=== PATIENT | male | born 1965 | race Caucasian/White ===

== ENCOUNTER 2017-12-18 11:31 | Inpatient (IN) | payer BC ==
[2017-12-18 14:01] LABS: #Eosinphils 0.1 thou/uL (0.0-0.7); #Lymphocytes 1.8 thou/uL (1.20-3.40); #Monocytes 0.6 thou/uL (0.11-0.59); #Neutrophils 5.3 thou/uL (1.40-6.50); %Basophils 0.4 % (0.0-1.0); %Eosinophils 1.6 % (0.0-10.0); %Monocytes 7.3 % (0.0-10.0); %Neutrophils 67.7 % (42.0-75.0); Hemoglobin 12.2 g/dL (14.0-18.0); Mean Corpuscular Hemoglobin 31.9 pg (27.0-31.0); Mean Corpuscular Volume 88.6 fL (78.0-98.0); Mean Platelet Volume 6.5 fL (7.4-10.4); Platelet Count 272 thou/uL (130-400); RBC Distribution Width 12.4 % (11.5-14.5); Red Blood Cell (RBC) Count 3.82 mill/uL (4.70-6.10); White Blood Cell (WBC) Count 7.9 thou/uL (4.8-10.8)
[2017-12-18 14:18] LABS: PTT 29.5 SEC (22.9-36.1); Prothrombin Time 12.8 SEC (12.0-14.7)
[2017-12-18 14:32] LABS: ALT (SGPT) 18 U/L (8-55); AST (SGOT) 15 U/L (5-34); Albumin 3.9 g/dL (3.5-5.0); Alkaline Phosphatase 51 U/L (40-150); Anion Gap 14 mmol/L (10-20); BUN (Urea Nitrogen) 46 mg/dL (8.9-20.6); Bilirubin, Total 0.5 mg/dL (0.2-1.2); Calc. Creatinine Clearance 56 mL/min (70-130); Calcium 9.1 mg/dL (7.8-10.44); Carbon Dioxide 19 mmol/L (22-29); Chloride 108 mmol/L (98-107); Estimated GFR-MDRD 27; Globulin 3.2 g/dL (2.4-3.5); Glucose 137 mg/dL (70-105); Potassium 4.7 mmol/L (3.5-5.1); Protein, Total 7.1 g/dL (6.0-8.3); Sodium 136 mmol/L (136-145)
--- NOTE | 2017-12-18 14:34 | PDOC.PN ---
- Subjective Encounter Start Date: 12/18/17 Encounter Start Time: 14:33 -: old records requested/rev Patient seen and examined. No new complaints. No overnight events no chest pain - Objective MAR Reviewed: Yes Vital Signs & Weight: Vital Signs (12 hours) Temp Pulse Resp BP Pulse Ox 12/18/17 13:00 98.1 F 80 16 97 12/18/17 12:27 98.1 F 80 16 101/85 97 Weight Weight 249 lb 2 oz Result Diagrams: 12/18/17 13:51 12/18/17 13:51 Phys Exam - Physical Examination Constitutional: NAD HEENT: PERRLA, moist MMs, sclera anicteric Neck: no JVD, supple Respiratory: no wheezing, no rales, no rhonchi Cardiovascular: RRR, no significant murmur, no rub Gastrointestinal: soft, non-tender, no distention, positive bowel sounds Musculoskeletal: pulses present, edema present trace edema Neurological: non-focal, normal sensation, moves all 4 limbs Psychiatric: normal affect, A&O x 3 Skin: no rash, normal turgor Dx/Plan (1) Diabetes type 2, controlled Code(s): E11.9 - TYPE 2 DIABETES MELLITUS WITHOUT COMPLICATIONS Status: Chronic (2) Dyslipidemia Code(s): E78.5 - HYPERLIPIDEMIA, UNSPECIFIED Status: Chronic (3) HTN (hypertension) Code(s): I10 - ESSENTIAL (PRIMARY) HYPERTENSION Status: Chronic Comment: Stable (4) Obesity (BMI 30.0-34.9) Code(s): E66.9 - OBESITY, UNSPECIFIED Status: Chronic - Plan cont current plan of care * will start his home medication * insulin as per sliding scale * medication reviewed as below * symptomatic treatment * plan for cardiac cath tomorrow as per cardio * code-full code, is surrogate decision maker. Review of Systems - Review of Systems Constitutional: negative: fever, chills, sweats, weakness, malaise, other Eyes: negative: Pain, Vision Change, Conjunctivae Inflammation, Eyelid Inflammation, Redness, Other ENT: negative: Ear Pain, Ear Discharge, Nose Pain, Nose Discharge, Nose Congestion, Mouth Pain, Mouth Swelling, Throat Pain, Throat Swelling, Other Respiratory: negative: Cough, Dry, Shortness of Breath, Hemoptysis, SOB with Excertion, Pleuritic Pain, Sputum, Wheezing Cardiovascular: negative: chest pain, palpitations, orthopnea, paroxysmal nocturnal dyspnea, edema, light headedness, other Gastrointestinal: negative: Nausea, Vomiting, Abdominal Pain, Diarrhea, Constipation, Melena, Hematochezia, Other Genitourinary: negative: Dysuria, Frequency, Incontinence, Hematuria, Retention , Other Musculoskeletal: negative: Neck Pain, Shoulder Pain, Arm Pain, Back Pain, Hand Pain, Leg Pain, Foot Pain, Other Skin: negative: Rash, Lesions, Travis, Bruising, Other Neurological: negative: Weakness, Numbness, Incoordination, Change in Speech, Confusion, Seizures, Other - Medications/Allergies Allergies/Adverse Reactions: Allergies Allergy/AdvReac Type Severity Reaction Status Date / Time No Known Allergies Allergy Verified 12/18/17 12:29 Medications: Current Medications Atorvastatin Calcium (Lipitor) 40 mg PO HS RAFAEL Sodium Chloride (Normal Saline 0.9%) 1,000 mls @ 75 mls/hr IV .[id number] RAFAEL Metoprolol Tartrate (Lopressor) 50 mg PO BID [facility] History of Present Illnes - Past Medical History Cardiac: HTN Endocrine: Diabetes, Hyperthyroidism - Past Surgical History Past Surgical History: None - Past Family History Family History: None - Past Social History Smoke: Quit Alcohol: None Drugs: None Lives: With Family Domestic Violence: Negative
[2017-12-18] MEDS: Sodium Chloride 0.9% 1,000 ML IV SCH (15:27)
[2017-12-18] MEDS: Atorvastatin Calcium 40 MG TAB PO SCH (20:10)
[2017-12-18] MEDS ORDERED: Metoprolol Tartrate 50 MG TAB PO SCH (21:00)
[2017-12-19] MEDS: Sodium Chloride 0.9% 1,000 ML IV SCH ×2 (02:55→14:35)
[2017-12-19 04:39] LABS: Anion Gap 12 mmol/L (10-20); BUN (Urea Nitrogen) 42 mg/dL (8.9-20.6); Calc. Creatinine Clearance 60 mL/min (70-130); Calcium 8.9 mg/dL (7.8-10.44); Carbon Dioxide 22 mmol/L (22-29); Cardiac Risk 4.3 (Less than 4.5); Chloride 107 mmol/L (98-107); Cholesterol 124 mg/dl (< 200 Desired); Estimated GFR-MDRD 30; Glucose 121 mg/dL (70-105); HDL Cholesterol 29 mg/dL (>60 Neg Risk); LDL Cholesterol, Calculated 64 mg/dL; Potassium 5.1 mmol/L (3.5-5.1); Sodium 136 mmol/L (136-145); Triglycerides 155 mg/dL (Less than 150)
[2017-12-19] MEDS ORDERED: Lidocaine 1% (PF) 30 ML VIAL ONE (06:44)
[2017-12-19] MEDS ORDERED: Acetaminophen 325 MG TAB PO PRN (07:09)
[2017-12-19] MEDS ORDERED: Chloraseptic Spray 180 ml Bottle PO PRN (07:09)
[2017-12-19] MEDS ORDERED: Loperamide HCl 2 MG CAP PO PRN (07:09)
[2017-12-19] MEDS ORDERED: Ondansetron ODT 4 MG TAB PO PRN (07:09)
[2017-12-19] MEDS ORDERED: hydrALAZINE 20 MG/ML VIAL SLOW IVP PRN (07:09)
[2017-12-19] MEDS ORDERED: Diabetic Tussin 200 MG/10 ML UDCUP PO PRN (07:09)
[2017-12-19] MEDS ORDERED: Ondansetron HCl/PF 4 MG/2 ML Vial IVP PRN (07:09)
[2017-12-19] MEDS ORDERED: Artificial Tears 18 DROP/0.9 ML EA EYE PRN (07:09)
[2017-12-19] MEDS ORDERED: Eucerin (Mineral Oil/Petrolatum,White) 30 gm Jar TOP PRN (07:09)
[2017-12-19] MEDS ORDERED: Senokot 8.6 MG TAB PO PRN (07:09)
[2017-12-19] MEDS ORDERED: Dextrose 5% in Water 1,000 ML IV PRN (07:09)
[2017-12-19] MEDS ORDERED: Nitroglycerin 0.4 MG TAB (25 Tab Bottle) SL PRN ×2 (07:09→07:33)
[2017-12-19] MEDS ORDERED: Mag-Al 1200 mg/1200 mg/30 ML UDCUP PO PRN (07:09)
[2017-12-19] MEDS ORDERED: Sodium Chloride 0.65% Nasal 44 ML BOT EA NARE PRN (07:09)
[2017-12-19] MEDS ORDERED: Zolpidem Tartrate 5 MG TAB PO PRN (07:09)
[2017-12-19] MEDS ORDERED: HYDROcodone/Acetaminophen 5/325 mg Tablet PO PRN (07:09)
[2017-12-19] MEDS ORDERED: Loratadine 10 MG TAB PO PRN (07:09)
[2017-12-19] MEDS ORDERED: Milk Of Magnesia 30 ML UDCUP PO PRN (07:09)
[2017-12-19] MEDS ORDERED: Dextrose 50% Abboject 50 ML SYRINGE SLOW IVP PRN (07:09)
[2017-12-19] MEDS ORDERED: HumaLOG 300 UNITS/3 ML VIAL SC PRN (07:09)
[2017-12-19] MEDS ORDERED: Heparin 10,000 UNITS/1 ML VIAL ONE (07:10)
[2017-12-19] MEDS ORDERED: Fentanyl 100 MCG/2 ML VIAL ONE (07:12)
[2017-12-19] MEDS ORDERED: Midazolam HCl 2 mg/2 ml Vial ONE (07:12)
[2017-12-19] MEDS ORDERED: Protamine Sulfate 50 MG/5 ML VIAL ONE (07:28)
[2017-12-19] MEDS ORDERED: Acetaminophen/Codeine 30-300mg Tablet PO PRN ×2 (07:33)
[2017-12-19] MEDS ORDERED: Sodium Chloride 0.9% 1,000 ML IV SCH (07:45)
[2017-12-19] MEDS ORDERED: Sodium Chloride 0.9% 200 ML IV SCH (07:45)
[2017-12-19] MEDS ORDERED: Heparin 5,000 UNITS/ML VIAL SC SCH (09:00)
[2017-12-19] MEDS: Famotidine 20 MG TAB PO SCH (09:24)
[2017-12-19] MEDS: Bupropion 150 MG SR TAB PO SCH ×2 (09:24→19:53)
--- NOTE | 2017-12-19 11:51 | PDOC.PN ---
- Subjective Encounter Start Date: 12/19/17 Encounter Start Time: 08:20 -: old records requested/rev Patient seen and examined. No new complaints. No overnight events - Objective Resuscitation Status: Resuscitation Status FULL:Full Resuscitation MAR Reviewed: Yes Vital Signs & Weight: Vital Signs (12 hours) Temp Pulse Resp BP BP Pulse Ox 12/19/17 07:58 98.3 F 61 18 111/62 98 12/19/17 06:55 97.8 F 63 18 12/19/17 05:33 97.8 F 63 18 105/68 98 12/19/17 01:02 98.1 F 66 18 107/67 97 Weight Weight 249 lb 2 oz I&O: 12/18/17 12/19/17 12/20/17 06:59 06:59 06:59 Intake Total 1750 Balance 1750 Result Diagrams: 12/18/17 13:51 12/19/17 03:46 Phys Exam - Physical Examination Constitutional: NAD HEENT: PERRLA, moist MMs, sclera anicteric Neck: no JVD, supple Respiratory: no wheezing, no rales, no rhonchi Cardiovascular: RRR, no significant murmur, no rub Gastrointestinal: soft, non-tender, no distention, positive bowel sounds Musculoskeletal: no edema, pulses present Neurological: non-focal, normal sensation Psychiatric: normal affect, A&O x 3 Skin: no rash, normal turgor Dx/Plan (1) Diabetes type 2, controlled Code(s): E11.9 - TYPE 2 DIABETES MELLITUS WITHOUT COMPLICATIONS Status: Chronic (2) Dyslipidemia Code(s): E78.5 - HYPERLIPIDEMIA, UNSPECIFIED Status: Chronic (3) HTN (hypertension) Code(s): I10 - ESSENTIAL (PRIMARY) HYPERTENSION Status: Chronic Comment: Stable (4) Obesity (BMI 30.0-34.9) Code(s): E66.9 - OBESITY, UNSPECIFIED Status: Chronic (5) CAD (coronary artery disease) Code(s): I25.10 - ATHSCL HEART DISEASE OF [place] CORONARY ARTERY W/O ANG PCTRS Status: Acute - Plan cont current plan of care, plan discussed w/ family * he has one vessel rca disease, but has collateral from left * he needs medical therapy * continue ivf today * consult nephrology * selected home meds * his bp runs low, so hold bp meds * medication reviewed as below * symptomatic treatment * discussed with family. Review of Systems - Review of Systems Eyes: negative: Pain, Vision Change, Conjunctivae Inflammation, Eyelid Inflammation, Redness, Other ENT: negative: Ear Pain, Ear Discharge, Nose Pain, Nose Discharge, Nose Congestion, Mouth Pain, Mouth Swelling, Throat Pain, Throat Swelling, Other Respiratory: negative: Cough, Dry, Shortness of Breath, Hemoptysis, SOB with Excertion, Pleuritic Pain, Sputum, Wheezing Cardiovascular: negative: chest pain, palpitations, orthopnea, paroxysmal nocturnal dyspnea, edema, light headedness, other Gastrointestinal: negative: Nausea, Vomiting, Abdominal Pain, Diarrhea, Constipation, Melena, Hematochezia, Other Genitourinary: negative: Dysuria, Frequency, Incontinence, Hematuria, Retention , Other Musculoskeletal: negative: Neck Pain, Shoulder Pain, Arm Pain, Back Pain, Hand Pain, Leg Pain, Foot Pain, Other Skin: negative: Rash, Lesions, Travis, Bruising, Other - Medications/Allergies Allergies/Adverse Reactions: Allergies Allergy/AdvReac Type Severity Reaction Status Date / Time No Known Allergies Allergy Verified 12/18/17 12:29 Medications: Current Medications Acetaminophen (Tylenol) 650 mg PO Q4H PRN PRN Reason: Headache/Fever or Mild Pain Acetaminophen/Codeine Phosphate (Tylenol #3) 1 tab PO Q4H PRN PRN Reason: Mild Pain (1-3) Acetaminophen/Codeine Phosphate (Tylenol #3) 2 tab PO Q4H PRN PRN Reason: Moderate Pain (4-6) Hydrocodone Bitart/Acetaminophen ([place] 5/325) 1 tab PO Q4H PRN PRN Reason: Moderate Pain (4-6) Last Admin: 12/19/17 09:18 Dose: 1 tab Al Hydroxide/Mg Hydroxide (Maalox) 15 ml PO Q4H PRN PRN Reason: Heartburn or Indigestion Artificial Tears (Tears Naturale) 0 drop EA EYE PRN PRN PRN Reason: Dry Eyes Aspirin (Ecotrin) 81 mg PO DAILY [facility] Atorvastatin Calcium (Lipitor) 40 mg PO HS [facility] Last Admin: 12/18/17 20:10 Dose: 40 mg Bupropion HCl (Wellbutrin Sr) 150 mg PO BID [facility] Last Admin: 12/19/17 09:24 Dose: 150 mg Dextrose/Water (Dextrose 50%) 25 gm SLOW IVP PRN PRN PRN Reason: Hypoglycemia Famotidine (Pepcid) 20 mg PO DAILY [facility] Last Admin: 12/19/17 09:24 Dose: 20 mg Glucagon (Glucagon) 1 mg IM PRN PRN PRN Reason: Hypoglycemia Guaifenesin (Robitussin Sf) 200 mg PO Q4H PRN PRN Reason: Cough Hydralazine HCl (Apresoline) 10 mg SLOW IVP Q4H PRN PRN Reason: Systolic BP > 180 Dextrose/Water (D5w) 1,000 mls @ 0 mls/hr IV .Q0M PRN; As Directed PRN Reason: Hypoglycemia Sodium Chloride (Normal Saline 0.9%) 1,000 mls @ 75 mls/hr IV .[id number] RAFAEL Sodium Chloride (Normal Saline 0.9%) 1,000 mls @ 125 mls/hr IV .Q8H [facility] Stop: 12/19/17 14:00 Last Admin: 12/19/17 08:20 Dose: 1,000 mls Sodium Chloride (Normal Saline 0.9%) 200 mls @ 0 mls/hr IV ONE RAFAEL PRN Reason: As Directed Stop: 12/19/17 21:00 Insulin Human Lispro (Humalog) 0 units SC .MODERATE SLIDING SC PRN PRN Reason: Moderate Correctional Scale Insulin Human Lispro (Humalog) 0 units SC .BEDTIME SLIDING SC PRN PRN Reason: Bedtime Correctional Scale Loperamide HCl (Imodium) 2 mg PO PRN PRN PRN Reason: Diarrhea/Loose Stools Loratadine (Claritin) 10 mg PO DAILYPRN PRN PRN Reason: Sinus Symptoms Magnesium Hydroxide (Milk Of Magnesium) 30 ml PO DAILYPRN PRN PRN Reason: Constipation Mineral Oil/White Petrolatum (Eucerin Cream) 0 gm TOP BIDPRN PRN PRN Reason: Dry Skin Nitroglycerin (Nitrostat) 0.4 mg SL Q5MIN PRN PRN Reason: Chest Pain Ondansetron HCl (Zofran Odt) 4 mg PO Q6H PRN PRN Reason: Nausea/Vomiting Ondansetron HCl (Zofran) 4 mg IVP Q6H PRN PRN Reason: Nausea/Vomiting Phenol (Chloraseptic [place] 180 Ml Bot) 0 ml PO PRN PRN PRN Reason: Sore Throat Senna (Senokot) 2 tab PO HSPRN PRN PRN Reason: Constipation Sodium Chloride ([place] Nasal [place] 0.65%) 0 ml EA NARE QIDPRN PRN PRN Reason: Nasal Congestion Zolpidem Tartrate (Ambien) 5 mg PO HSPRN PRN PRN Reason: Insomnia
[2017-12-19] MEDS ORDERED: Iopamidol 370 76% 100 ML VIAL ONE (12:47)
--- NOTE | 2017-12-19 14:04 | EKG ---
Test Reason : PREOP Blood Pressure : / mmHG Vent. Rate : 064 BPM Atrial Rate : 064 BPM P-R Int : 196 ms QRS Dur : 094 ms QT Int : 408 ms P-R-T Axes : 040 054 045 degrees QTc Int : 420 ms Normal sinus rhythm Normal ECG Confirmed by CARIDAD ALCALA ([id number]) on 12/19/2017 2:04:36 PM Referred By: SCOTT Confirmed By:CARIDAD ALCALA
[2017-12-19 16:10] LABS: Bilirubin Negative (Negative); Blood, Urine Negative (Negative); Clarity CLEAR (Clear); Glucose, Urine (Dipstick) 250 mg/dL (Negative); Leukocyte Negative (Negative); Nitrite Negative (Negative); Protein, Urine (Dipstick) Trace mg/dL (Neg-Trace); Urobilinogen 0.2 mg/dL (0.2-1.0); pH, Urine 5.5 (5.0-9.0)
[2017-12-19 16:13] LABS: Bacteria/HPF None Seen HPF (None Seen); Hyaline Casts/LPF 0-3 HYALINE CAST LPF (0-3 Hyaline); Pathc Cast-AUWi Flag 0.14 (0-2.49); RBC/HPF 0-3 HPF (0-3); Squamous Epithelial None Seen HPF (0-3); WBC/HPF None Seen HPF (0-3)
[2017-12-19] MEDS: Atorvastatin Calcium 40 MG TAB PO SCH (19:53)
[2017-12-20] MEDS: Sodium Chloride 0.9% 1,000 ML IV SCH ×2 (04:10→17:47)
[2017-12-20 05:13] VITALS: BMI 33.3
[2017-12-20 05:38] LABS: Anion Gap 11 mmol/L (10-20); BUN (Urea Nitrogen) 28 mg/dL (8.9-20.6); Calc. Creatinine Clearance 76 mL/min (70-130); Calcium 9.2 mg/dL (7.8-10.44); Carbon Dioxide 19 mmol/L (22-29); Chloride 109 mmol/L (98-107); Estimated GFR-MDRD 39; Glucose 140 mg/dL (70-105); Potassium 5.3 mmol/L (3.5-5.1); Sodium 134 mmol/L (136-145)
[2017-12-20] MEDS: Bupropion 150 MG SR TAB PO SCH (08:09)
[2017-12-20] MEDS: HumaLOG 300 UNITS/3 ML VIAL SC PRN ×2 (08:09→11:08)
[2017-12-20] MEDS: Famotidine 20 MG TAB PO SCH (08:09)
[2017-12-20] MEDS ORDERED: Aspirin 81 mg Enteric Coated Tablet PO SCH (09:00)
--- NOTE | 2017-12-20 10:01 | PDOC.PN ---
- Subjective Encounter Start Date: 12/20/17 Encounter Start Time: 07:50 Patient seen and examined. No new complaints. No overnight events - Objective Resuscitation Status: Resuscitation Status FULL:Full Resuscitation MAR Reviewed: Yes Vital Signs & Weight: Vital Signs (12 hours) Temp Pulse Resp BP BP Pulse Ox 12/20/17 08:00 98.2 F 66 16 97 12/20/17 07:31 98.2 F 66 16 126/60 97 12/20/17 03:14 97.6 F 59 L 14 109/59 L 98 Weight Weight 245 lb 8 oz I&O: 12/19/17 12/20/17 12/21/17 06:59 06:59 06:59 Intake Total 1750 3380 Output Total 4775 Balance 1750 -1395 Result Diagrams: 12/18/17 13:51 12/20/17 05:05 Additional Labs: Accuchecks 12/20/17 12/19/17 12/19/17 05:57 20:59 11:28 POC Glucose 165 H 108 121 H EKG Reviewed by me: Yes (nsr) Phys Exam - Physical Examination Constitutional: NAD HEENT: PERRLA, moist MMs, sclera anicteric Neck: no JVD, supple Respiratory: no wheezing, no rales, no rhonchi Cardiovascular: RRR, no significant murmur, no rub Gastrointestinal: soft, non-tender, no distention, positive bowel sounds Musculoskeletal: pulses present trace edema+ Neurological: non-focal, normal sensation, moves all 4 limbs Psychiatric: normal affect, A&O x 3 Skin: no rash, normal turgor Dx/Plan (1) Diabetes type 2, controlled Code(s): E11.9 - TYPE 2 DIABETES MELLITUS WITHOUT COMPLICATIONS Status: Chronic (2) Dyslipidemia Code(s): E78.5 - HYPERLIPIDEMIA, UNSPECIFIED Status: Chronic (3) HTN (hypertension) Code(s): I10 - ESSENTIAL (PRIMARY) HYPERTENSION Status: Chronic Comment: Stable (4) Obesity (BMI 30.0-34.9) Code(s): E66.9 - OBESITY, UNSPECIFIED Status: Chronic (5) CAD (coronary artery disease) Code(s): I25.10 - ATHSCL HEART DISEASE OF [place] CORONARY ARTERY W/O ANG PCTRS Status: Acute - Plan cont current plan of care, plan discussed w/ family * medication reviewed as below * symptomatic treatment * stable for discharge * see discharge summery * discharge medication reconciliation done. * discussed with Review of Systems - Review of Systems Eyes: negative: Pain, Vision Change, Conjunctivae Inflammation, Eyelid Inflammation, Redness, Other ENT: negative: Ear Pain, Ear Discharge, Nose Pain, Nose Discharge, Nose Congestion, Mouth Pain, Mouth Swelling, Throat Pain, Throat Swelling, Other Respiratory: negative: Cough, Dry, Shortness of Breath, Hemoptysis, SOB with Excertion, Pleuritic Pain, Sputum, Wheezing Cardiovascular: negative: chest pain, palpitations, orthopnea, paroxysmal nocturnal dyspnea, edema, light headedness, other Gastrointestinal: negative: Nausea, Vomiting, Abdominal Pain, Diarrhea, Constipation, Melena, Hematochezia, Other Genitourinary: negative: Dysuria, Frequency, Incontinence, Hematuria, Retention , Other Musculoskeletal: negative: Neck Pain, Shoulder Pain, Arm Pain, Back Pain, Hand Pain, Leg Pain, Foot Pain, Other Skin: negative: Rash, Lesions, Travis, Bruising, Other - Medications/Allergies Allergies/Adverse Reactions: Allergies Allergy/AdvReac Type Severity Reaction Status Date / Time No Known Allergies Allergy Verified 12/18/17 12:29 Medications: Current Medications Acetaminophen (Tylenol) 650 mg PO Q4H PRN PRN Reason: Headache/Fever or Mild Pain Acetaminophen/Codeine Phosphate (Tylenol #3) 1 tab PO Q4H PRN PRN Reason: Mild Pain (1-3) Acetaminophen/Codeine Phosphate (Tylenol #3) 2 tab PO Q4H PRN PRN Reason: Moderate Pain (4-6) Hydrocodone Bitart/Acetaminophen ([place] 5/325) 1 tab PO Q4H PRN PRN Reason: Moderate Pain (4-6) Last Admin: 12/19/17 09:18 Dose: 1 tab Al Hydroxide/Mg Hydroxide (Maalox) 15 ml PO Q4H PRN PRN Reason: Heartburn or Indigestion Artificial Tears (Tears Naturale) 0 drop EA EYE PRN PRN PRN Reason: Dry Eyes Aspirin (Ecotrin) 81 mg PO DAILY [facility] Last Admin: 12/20/17 08:09 Dose: 81 mg Atorvastatin Calcium (Lipitor) 40 mg PO HS [facility] Last Admin: 12/19/17 19:53 Dose: 40 mg Bupropion HCl (Wellbutrin Sr) 150 mg PO BID [facility] Last Admin: 12/20/17 08:09 Dose: 150 mg Dextrose/Water (Dextrose 50%) 25 gm SLOW IVP PRN PRN PRN Reason: Hypoglycemia Famotidine (Pepcid) 20 mg PO DAILY [facility] Last Admin: 12/20/17 08:09 Dose: 20 mg Glucagon (Glucagon) 1 mg IM PRN PRN PRN Reason: Hypoglycemia Guaifenesin (Robitussin Sf) 200 mg PO Q4H PRN PRN Reason: Cough Hydralazine HCl (Apresoline) 10 mg SLOW IVP Q4H PRN PRN Reason: Systolic BP > 180 Dextrose/Water (D5w) 1,000 mls @ 0 mls/hr IV .Q0M PRN; As Directed PRN Reason: Hypoglycemia Sodium Chloride (Normal Saline 0.9%) 1,000 mls @ 75 mls/hr IV .[id number] [facility] Last Admin: 12/20/17 04:10 Dose: 1,000 mls Insulin Human Lispro (Humalog) 0 units SC .MODERATE SLIDING SC PRN PRN Reason: Moderate Correctional Scale Last Admin: 12/20/17 08:09 Dose: 2 unit Insulin Human Lispro (Humalog) 0 units SC .BEDTIME SLIDING SC PRN PRN Reason: Bedtime Correctional Scale Loperamide HCl (Imodium) 2 mg PO PRN PRN PRN Reason: Diarrhea/Loose Stools Loratadine (Claritin) 10 mg PO DAILYPRN PRN PRN Reason: Sinus Symptoms Magnesium Hydroxide (Milk Of Magnesium) 30 ml PO DAILYPRN PRN PRN Reason: Constipation Mineral Oil/White Petrolatum (Eucerin Cream) 0 gm TOP BIDPRN PRN PRN Reason: Dry Skin Nitroglycerin (Nitrostat) 0.4 mg SL Q5MIN PRN PRN Reason: Chest Pain Ondansetron HCl (Zofran Odt) 4 mg PO Q6H PRN PRN Reason: Nausea/Vomiting Ondansetron HCl (Zofran) 4 mg IVP Q6H PRN PRN Reason: Nausea/Vomiting Phenol (Chloraseptic [place] 180 Ml Bot) 0 ml PO PRN PRN PRN Reason: Sore Throat Senna (Senokot) 2 tab PO HSPRN PRN PRN Reason: Constipation Sodium Chloride ([place] Nasal [place] 0.65%) 0 ml EA NARE QIDPRN PRN PRN Reason: Nasal Congestion Zolpidem Tartrate (Ambien) 5 mg PO HSPRN PRN PRN Reason: Insomnia
--- NOTE | 2017-12-20 12:04 | DIS ---
DATE OF ADMISSION: 12/18/2017 DATE OF DISCHARGE: 12/20/2017 PRIMARY CARE PHYSICIAN: Dr. Kingsley Cooper. DISCHARGE DISPOSITION: Home. PRIMARY DISCHARGE DIAGNOSIS: Single vessel right coronary artery disease. SECONDARY DISCHARGE DIAGNOSES: Obesity with BMI 33, hypertension, dyslipidemia, diabetes type 2, chr onic kidney disease stage 3. PRIMARY PROCEDURE AND OPERATION: Cardiac catheterization was performed by Dr. Kirkpatrick and patient w as found with one-vessel coronary artery disease. RADIOLOGICAL INVESTIGATION: None. SIGNIFICANT LABORATORY DATA: WBC 7.9, hemoglobin 12.2, platelet 272. INR 1.0. Sodium 134, potassiu m 5.3, BUN 28, creatinine 1.84, calcium 9.2, LDL 64. Urinalysis, glucose present. DISCHARGE MEDICATIONS: Aspirin 81 mg p.o. daily, Lipitor 40 mg p.o. at bedtime, Wellbutrin-SR 150 mg p.o. b.i.d. Discontinue following medications, lisinopril with hydrochlorothiazide, metformin. Con tinue insulin NPH 70/30, 30 units subcu in the morning. CONTRAINDICATIONS: The patient is not on antihypertensive medication because of low blood pressure. CODE STATUS: FULL CODE. INPATIENT CONSULTANTS: Dr. Kirkpatrick admitted this patient. Sound team was consulted for medical com anagement. Dr. Saurav Mcclellan was consulted while in hospital. TEST RESULTS PENDING ON DISCHARGE: None. ALLERGIES: No known drug allergy. DISCHARGE PLAN: Post hospital, the patient will follow up with primary care physician in 1 week, whe re patient will make appointment with Dr. Kirkpatrick and Dr. Saurav Mcclellan as instructed. HOSPITAL COURSE: A 52-year-old male with the above mentioned medical problem who made a one-time kishan ointment with Nephrology. At that time, he reported to Nephrology that he was experiencing chest kaleb n and that is why patient was referred to Cardiology as an outpatient basis. The patient had a stres s test as an outpatient basis, which was abnormal and that is why this patient was electively admitte d by Dr. Kirkpatrick for cardiac catheterization. He has renal insufficiency and that is why he was giv en IV fluid. He underwent a cardiac catheterization and he was found with a single-vessel coronary a rtery disease with collaterals from the left side. Cardiology recommended medical therapy. He did n ot require any further intervention. After the procedure, the patient was hydrated with IV fluid, hi s renal function improved to normal. While in hospital, we noted that his blood pressure was running low and that is why we discontinued Prinzide, because of renal insufficiency, hyperkalemia and hypot ension. He was given only aspirin and statin therapy. Patient is overall doing very well. He does not have any complaints. The patient is seen and examined at bedside today. Plan of care discussed with the family member. We will sign off.
[2017-12-20] MEDS ORDERED: Insulin NPH/Reg Insulin Hm 300 UNITS/3 ML VIAL SC SCH (12:30)
[2017-12-20 16:21] VITALS: BP 130/60; TEMP 97.8
[2017-12-21] MEDS ORDERED: Carvedilol 3.125 MG TAB PO SCH (08:00)
[2017-12-21] MEDS ORDERED: Insulin NPH/Reg Insulin Hm 300 UNITS/3 ML VIAL SC SCH (08:00)
== END 2017-12-20 18:49 | disposition home or self-care (01) | DRG 287 ==
LOC: T4-B 11:53 → 2NO 12-19 08:10
PROVIDERS: ADMIT Internal Medicine Cardiovascular Disease; ATTEND Internal Medicine Cardiovascular Disease
PROC: 4A023N7 Measurement of Cardiac Sampling and Pressure, Left Heart, Percutaneous Approach (ICD-10-PCS; principal; 2017-12-19)
PROC: B2111ZZ Fluoroscopy of Multiple Coronary Arteries using Low Osmolar Contrast (ICD-10-PCS; 2017-12-19)
DX: I25.10 Atherosclerotic heart disease of native coronary artery without angina pectoris (principal); N18.4 Chronic kidney disease, stage 4 (severe); E66.9 Obesity, unspecified; Z68.33 Body mass index [BMI] 33.0-33.9, adult; I12.9 Hypertensive chronic kidney disease with stage 1 through stage 4 chronic kidney disease, or unspecified chronic kidney disease; E11.22 Type 2 diabetes mellitus with diabetic chronic kidney disease; E78.5 Hyperlipidemia, unspecified; M47.9 Spondylosis, unspecified; Z86.73 Personal history of transient ischemic attack (TIA), and cerebral infarction without residual deficits; H26.9 Unspecified cataract; Z87.891 Personal history of nicotine dependence; E03.9 Hypothyroidism, unspecified
CPT/HCPCS: 36415; 36416; 80048; 80053; 80061; 81001; 85025; 85347; 85610; 85730; 93005; 93010; 93454; 93798; 99152; 99153; C1769; J1644; J2001; J2250; J2720; J3010

== ENCOUNTER 2018-11-20 16:00 | Outpatient (CLI) | payer BC | END 2018-11-20 16:01 | disposition home or self-care (01) | LOC: SLEEPLAB 16:00 | PROVIDERS: ATTEND Family Medicine | DX: G47.33 Obstructive sleep apnea (adult) (pediatric) (principal); R53.83 Other fatigue; R09.89 Other specified symptoms and signs involving the circulatory and respiratory systems; R51 Headache; E11.9 Type 2 diabetes mellitus without complications; R06.83 Snoring; K21.9 Gastro-esophageal reflux disease without esophagitis; I10 Essential (primary) hypertension; I25.10 Atherosclerotic heart disease of native coronary artery without angina pectoris; I21.9 Acute myocardial infarction, unspecified; I25.2 Old myocardial infarction; G47.00 Insomnia, unspecified; E66.9 Obesity, unspecified; Z68.38 Body mass index [BMI] 38.0-38.9, adult | CPT/HCPCS: 95806 ==

== ENCOUNTER 2021-06-26 09:15 | Inpatient (IN) | payer BC, OTHER ==
[2021-06-26 10:14] LABS: #Basophils 0.1 thou/uL (0.0-0.2); #Eosinphils 0.3 thou/uL (0.0-0.7); #Lymphocytes 1.3 thou/uL (1.20-3.40); #Monocytes 0.5 thou/uL (0.11-0.59); #Neutrophils 6.7 thou/uL (1.40-6.50); %Basophils 0.8 % (0.0-1.0); %Eosinophils 3.5 % (0.0-10.0); %Monocytes 5.6 % (0.0-10.0); Hemoglobin 11.4 g/dL (14.0-18.0); Mean Corpuscular HGB CONC 34.8 g/dL (32.0-36.0); Mean Corpuscular Hemoglobin 30.9 pg (27.0-31.0); Platelet Count 271 thou/uL (130-400); RBC Distribution Width 11.7 % (11.5-14.5); Red Blood Cell (RBC) Count 3.69 mill/uL (4.70-6.10); White Blood Cell (WBC) Count 8.9 thou/uL (4.8-10.8)
[2021-06-26 10:34] LABS: ALT (SGPT) 38 U/L (8-55); AST (SGOT) 24 U/L (5-34); Albumin 4.1 g/dL (3.5-5.0); Alkaline Phosphatase 71 U/L (40-110); Anion Gap 18 mmol/L (10-20); BUN (Urea Nitrogen) 75 mg/dL (8.4-25.7); Bilirubin, Total 0.5 mg/dL (0.2-1.2); Calc. Creatinine Clearance 0 mL/min (70-130); Calcium 9.9 mg/dL (7.8-10.44); Carbon Dioxide 17 mmol/L (22-29); Chloride 100 mmol/L (98-107); Globulin 3.9 g/dL (2.4-3.5); Sodium 128 mmol/L (136-145)
[2021-06-26 10:41] LABS: Glucose 568 mg/dL (70-105)
[2021-06-26] MEDS ORDERED: Insulin Regular 300 UNITS/3 ML VIAL ONE (10:51)
[2021-06-26 11:08] LABS: Bacteria/HPF None Seen HPF (None Seen); Bilirubin Negative (Negative); Blood, Urine Trace (Negative); Clarity Clear (Clear); Glucose, Urine (Dipstick) Greater than 1000 mg/dL (Negative); Ketone, Urine Negative (Negative); Leukocyte Negative Leu/uL (Negative); Nitrite Negative (Negative); Protein, Urine (Dipstick) 100 mg/dL (Neg-Trace); Specific Gravity, Urine 1.011 (1.002-1.036); Squamous Epithelial None Seen HPF (0-3); Urobilinogen Normal mg/dL (Less than 2); WBC/HPF 0-3 HPF (0-3)
[2021-06-26 11:09] LABS: RBC/HPF 0-3 HPF (0-3)
[2021-06-26] MEDS ORDERED: Aspirin Chewable 81 MG TAB ONE (11:22)
[2021-06-26] MEDS ORDERED: Sodium Bicarbonate 50 MEQ in Dextrose 5 %-0.45 % NaCl 1,000 ML IV SCH (12:15)
[2021-06-26] MEDS ORDERED: Ondansetron ODT 4 MG TAB SL PRN (12:30)
[2021-06-26] MEDS ORDERED: Ondansetron PF 4 MG/2 ML Vial IVP PRN (12:30)
[2021-06-26 12:43] LABS: Anion Gap 18 mmol/L (10-20); BUN (Urea Nitrogen) 76 mg/dL (8.4-25.7); Calc. Creatinine Clearance 0 mL/min (70-130); Calcium 9.5 mg/dL (7.8-10.44); Carbon Dioxide 13 mmol/L (22-29); Chloride 104 mmol/L (98-107); Glucose 445 mg/dL (70-105); Potassium 6.1 mmol/L (3.5-5.1); Sodium 129 mmol/L (136-145)
[2021-06-26] MEDS ORDERED: hydrALAZINE 20 MG/ML VIAL SLOW IVP PRN (13:17)
[2021-06-26] MEDS ORDERED: Nitroglycerin 0.4 MG TAB (25 Tab Bottle) SL PRN (13:19)
[2021-06-26] MEDS ORDERED: Dextrose 5% in Water 1,000 ML IV PRN ×2 (13:20→23:00)
[2021-06-26] MEDS ORDERED: Dextrose 50% Abboject 50 ML SYRINGE SLOW IVP PRN ×2 (13:20→23:00)
[2021-06-26] MEDS ORDERED: HumaLOG 300 UNITS/3 ML VIAL SC SCH (13:30)
[2021-06-26] MEDS ORDERED: HumaLOG 300 UNITS/3 ML VIAL ONE (13:59)
[2021-06-26 14:58] LABS: Troponin I Less than 0.010 ng/mL (< 0.028)
[2021-06-26] MEDS ORDERED: Acetaminophen 325 MG TAB ONE (17:37)
[2021-06-26] MEDS: Acetaminophen 325 MG TAB PO PRN ×2 (17:41→22:40)
[2021-06-26 18:29] LABS: Troponin I Less than 0.010 ng/mL (< 0.028)
[2021-06-26] MEDS: Dextrose 5 %-0.45 % NaCl 1,000 ML IV SCH (20:10)
[2021-06-26] MEDS ORDERED: Atorvastatin Calcium 40 MG TAB PO SCH ×2 (21:00)
[2021-06-26] MEDS: Carvedilol 3.125 MG TAB PO SCH (22:40)
[2021-06-27] MEDS: HumaLOG 300 UNITS/3 ML VIAL SC PRN ×5 (00:08→22:07)
[2021-06-27 06:58] LABS: Cardiac Risk 5.2 (Less than 4.5)
[2021-06-27] MEDS: Carvedilol 3.125 MG TAB PO SCH ×2 (08:56→22:07)
[2021-06-27] MEDS: Aspirin 81 mg Enteric Coated Tablet PO SCH (08:56)
[2021-06-27] MEDS: Enoxaparin Sodium 30 MG/0.3 ML SYRINGE SC SCH (08:57)
[2021-06-27] MEDS ORDERED: FLU VACC QS2021-22(6MOS UP)/PF 60 MCG/0.5 ML SYRINGE IM ONE (09:00)
[2021-06-27] MEDS ORDERED: Prevnar 13-Val Conj/PF 0.5 ML SYRINGE IM ONE (09:00)
[2021-06-27] MEDS ORDERED: Lantus 1000 UNITS/10 ML VIAL SC SCH (10:00)
[2021-06-27] MEDS: Acetaminophen 325 MG TAB PO PRN ×2 (10:12→15:25)
[2021-06-27 12:07] LABS: #Eosinphils 0.3 thou/uL (0.0-0.7); #Lymphocytes 1.6 thou/uL (1.20-3.40); #Monocytes 0.6 thou/uL (0.11-0.59); #Neutrophils 5.6 thou/uL (1.40-6.50); %Basophils 0.6 % (0.0-1.0); %Eosinophils 4.1 % (0.0-10.0); %Lymphocytes 19.2 % (21.0-51.0); %Monocytes 6.9 % (0.0-10.0); %Neutrophils 69.2 % (42.0-75.0); Hemoglobin 10.3 g/dL (14.0-18.0); Mean Corpuscular HGB CONC 34.4 g/dL (32.0-36.0); Platelet Count 252 thou/uL (130-400); RBC Distribution Width 11.6 % (11.5-14.5); Red Blood Cell (RBC) Count 3.32 mill/uL (4.70-6.10); White Blood Cell (WBC) Count 8.1 thou/uL (4.8-10.8)
[2021-06-27] MEDS ORDERED: HumaLOG 300 UNITS/3 ML VIAL SC SCH (12:15)
[2021-06-27 12:21] LABS: Anion Gap 17 mmol/L (10-20); BUN (Urea Nitrogen) 71 mg/dL (8.4-25.7); Calc. Creatinine Clearance 29 mL/min (70-130); Calcium 8.3 mg/dL (7.8-10.44); Carbon Dioxide 14 mmol/L (22-29); Chloride 101 mmol/L (98-107); Glucose 504 mg/dL (70-105); Potassium 6.2 mmol/L (3.5-5.1); Sodium 126 mmol/L (136-145)
[2021-06-27] MEDS: Dextrose 5 %-0.45 % NaCl 1,000 ML IV SCH (12:22)
[2021-06-27] MEDS ORDERED: Sodium Chloride 0.9% 1,000 ML IV SCH (12:30)
[2021-06-27] MEDS ORDERED: Prochlorperazine 10 MG/2 ML VIAL IVP SCH (14:45)
[2021-06-27] MEDS ORDERED: diphenhydrAMINE 50 MG/ML VIAL IVP SCH (14:45)
[2021-06-27] MEDS: Sodium Chloride 0.9% 1,000 ML IV SCH (17:17)
[2021-06-27 18:38] LABS: SARS-CoV-2 PCR by NAA Not Detected (NotDetected)
[2021-06-27] MEDS ORDERED: Atorvastatin Calcium 40 MG TAB PO SCH (21:00)
[2021-06-27] MEDS: Atorvastatin Calcium 40 MG TAB PO SCH (22:07)
[2021-06-28] MEDS: Sodium Chloride 0.9% 1,000 ML IV SCH ×3 (00:54→21:03)
[2021-06-28] MEDS: HumaLOG 300 UNITS/3 ML VIAL SC PRN ×3 (06:41→17:25)
[2021-06-28 07:33] LABS: #Eosinphils 0.3 thou/uL (0.0-0.7); #Lymphocytes 1.7 thou/uL (1.20-3.40); #Monocytes 0.6 thou/uL (0.11-0.59); #Neutrophils 4.5 thou/uL (1.40-6.50); %Basophils 0.3 % (0.0-1.0); %Lymphocytes 23.6 % (21.0-51.0); %Neutrophils 63.2 % (42.0-75.0); Hemoglobin 10.6 g/dL (14.0-18.0); Mean Corpuscular HGB CONC 34.8 g/dL (32.0-36.0); Mean Corpuscular Volume 89.2 fL (78.0-98.0); Mean Platelet Volume 6.7 fL (7.4-10.4); Platelet Count 242 thou/uL (130-400); RBC Distribution Width 11.5 % (11.5-14.5); Red Blood Cell (RBC) Count 3.42 mill/uL (4.70-6.10); White Blood Cell (WBC) Count 7.1 thou/uL (4.8-10.8)
[2021-06-28 07:51] LABS: Hemoglobin A1c 9.5 % (4.0-6.0)
[2021-06-28 07:58] LABS: Anion Gap 14 mmol/L (10-20); BUN (Urea Nitrogen) 67 mg/dL (8.4-25.7); Calc. Creatinine Clearance 28 mL/min (70-130); Calcium 7.9 mg/dL (7.8-10.44); Carbon Dioxide 17 mmol/L (22-29); Chloride 106 mmol/L (98-107); Glucose 223 mg/dL (70-105); Potassium 4.9 mmol/L (3.5-5.1); Sodium 132 mmol/L (136-145)
[2021-06-28] MEDS ORDERED: Lantus 1000 UNITS/10 ML VIAL SC SCH (09:00)
[2021-06-28] MEDS: Carvedilol 3.125 MG TAB PO SCH ×2 (10:20→21:02)
[2021-06-28] MEDS: Aspirin 81 mg Enteric Coated Tablet PO SCH (10:20)
[2021-06-28] MEDS: Enoxaparin Sodium 30 MG/0.3 ML SYRINGE SC SCH (10:20)
[2021-06-28] MEDS: Clopidogrel Bisulfate 75 MG TAB PO SCH (10:20)
[2021-06-28] MEDS ORDERED: Magnevist 469MG/ML 20 ML VIAL ONE (12:29)
[2021-06-28] MEDS: Acetaminophen 325 MG TAB PO PRN (16:47)
[2021-06-28] MEDS ORDERED: NPH, Human Insulin Isophane 300 UNIT/3 ML VIAL SC SCH (17:30)
[2021-06-28] MEDS ORDERED: Sodium Bicarbonate Tab 325 MG TAB PO SCH (21:00)
[2021-06-28] MEDS: Atorvastatin Calcium 40 MG TAB PO SCH (21:02)
[2021-06-29] MEDS ORDERED: EPINEPHrine 1 MG/ML AMP ONE (07:14)
[2021-06-29] MEDS ORDERED: Bupivacaine 0.25% HCL 30 ML VIAL ONE (07:14)
[2021-06-29] MEDS ORDERED: Protamine Sulfate 50 MG/5 ML VIAL ONE (07:14)
[2021-06-29] MEDS ORDERED: Heparin 5,000 UNITS/ML VIAL ONE (07:14)
[2021-06-29 07:20] LABS: Anion Gap 15 mmol/L (10-20); BUN (Urea Nitrogen) 58 mg/dL (8.4-25.7); Calc. Creatinine Clearance 29 mL/min (70-130); Calcium 7.6 mg/dL (7.8-10.44); Carbon Dioxide 15 mmol/L (22-29); Chloride 109 mmol/L (98-107); Glucose 187 mg/dL (70-105); Sodium 134 mmol/L (136-145)
[2021-06-29] MEDS ORDERED: ceFAZolin 2 GM/Dextrose 50 ML 2 GM in Premix Bag 1 BAG IVPB SCH (07:30)
[2021-06-29] MEDS ORDERED: NPH, Human Insulin Isophane 300 UNIT/3 ML VIAL SC SCH ×4 (10:15→21:00)
[2021-06-29] MEDS: Sodium Chloride 0.9% 1,000 ML IV SCH (11:03)
[2021-06-29] MEDS: Acetaminophen 325 MG TAB PO PRN (11:09)
[2021-06-29] MEDS: Sodium Bicarbonate 50 MEQ in Dextrose 5 %-0.45 % NaCl 1,000 ML IV SCH (11:09)
[2021-06-29] MEDS: Carvedilol 3.125 MG TAB PO SCH ×2 (11:12→21:24)
[2021-06-29] MEDS: Aspirin 81 mg Enteric Coated Tablet PO SCH (11:12)
[2021-06-29] MEDS: Clopidogrel Bisulfate 75 MG TAB PO SCH (11:13)
[2021-06-29] MEDS: HumaLOG 300 UNITS/3 ML VIAL SC PRN ×2 (13:30→17:52)
[2021-06-29] MEDS: Atorvastatin Calcium 40 MG TAB PO SCH (21:24)
[2021-06-30] MEDS: Sodium Bicarbonate 50 MEQ in Dextrose 5 %-0.45 % NaCl 1,000 ML IV SCH (00:11)
[2021-06-30] MEDS: HumaLOG 300 UNITS/3 ML VIAL SC PRN ×2 (04:46→18:29)
[2021-06-30] MEDS ORDERED: Heparin 5,000 UNITS/ML VIAL ONE (06:26)
[2021-06-30] MEDS ORDERED: Protamine Sulfate 50 MG/5 ML VIAL ONE (06:26)
[2021-06-30] MEDS ORDERED: Bupivacaine 0.25% HCL 30 ML VIAL ONE (06:26)
[2021-06-30] MEDS ORDERED: EPINEPHrine 1 MG/ML AMP ONE (06:26)
[2021-06-30] MEDS ORDERED: Fentanyl 100 MCG/2 ML VIAL ONE ×4 (06:50→12:45)
[2021-06-30] MEDS ORDERED: Bupivacaine PF 0.5% 30 ML VIAL ONE (06:54)
[2021-06-30] MEDS ORDERED: Lidocaine 2% PF 5 ML VIAL ONE (07:06)
[2021-06-30] MEDS ORDERED: Ondansetron ODT 4 MG TAB ONE (07:06)
[2021-06-30] MEDS ORDERED: Ondansetron PF 4 MG/2 ML Vial ONE ×2 (07:09→10:05)
[2021-06-30] MEDS ORDERED: Succinylcholine 200 MG/10 ml SYRINGE FS ONE (07:09)
[2021-06-30] MEDS ORDERED: PROPOFOL 200 MG/20 ML VIAL ONE (07:09)
[2021-06-30] MEDS ORDERED: Rocuronium Bromide 10 MG/ML (10ML VIAL) ONE (07:09)
[2021-06-30] MEDS ORDERED: Lidocaine 1% PF 5 ML VIAL ONE (07:09)
[2021-06-30] MEDS ORDERED: Dexamethasone 20 MG/5 ML VIAL ONE (07:09)
[2021-06-30] MEDS ORDERED: Glycopyrrolate 0.2 MG/ML 5 ML SYRINGE ONE (07:09)
[2021-06-30] MEDS ORDERED: ceFAZolin 2 GM/Dextrose 50 ML IVPB ONE (07:21)
[2021-06-30] MEDS ORDERED: ceFAZolin 2 GM/Dextrose 50 ML 2 GM in Premix Bag 1 BAG IVPB SCH (07:30)
[2021-06-30] MEDS ORDERED: Sodium Chloride 0.9% 10 ML ONE (07:51)
[2021-06-30] MEDS ORDERED: Promethazine HCl 25 MG/ML VIAL ONE (09:26)
[2021-06-30] MEDS ORDERED: Promethazine HCl 25 MG/ML VIAL IM PRN (09:40)
[2021-06-30] MEDS ORDERED: Ondansetron HCl/PF 4 MG/2 ML Vial IVP PRN (09:40)
[2021-06-30] MEDS ORDERED: Promethazine HCl 25 MG/ML VIAL IVPB PRN (09:40)
[2021-06-30] MEDS ORDERED: traMADol HCl 50 MG TAB PO PRN ×2 (09:48)
[2021-06-30] MEDS ORDERED: Acetaminophen 325 MG TAB PO PRN (09:48)
[2021-06-30] MEDS ORDERED: Ondansetron PF 4 MG/2 ML Vial IVP PRN (09:48)
[2021-06-30] MEDS ORDERED: hydrALAZINE 20 MG/ML VIAL SLOW IVP PRN (09:48)
[2021-06-30] MEDS ORDERED: Sodium Chloride 0.9% 1,000 ML IV SCH (09:48)
[2021-06-30] MEDS ORDERED: hydrALAZINE 20 MG/ML VIAL ONE (09:50)
[2021-06-30] MEDS ORDERED: Aspirin 325 mg Enteric Coated Tablet PO SCH (14:15)
[2021-06-30 14:54] LABS: #Eosinphils 0.1 thou/uL (0.0-0.7); #Lymphocytes 0.6 thou/uL (1.20-3.40); #Monocytes 0.2 thou/uL (0.11-0.59); %Basophils 0.2 % (0.0-1.0); %Eosinophils 0.8 % (0.0-10.0); %Lymphocytes 6.2 % (21.0-51.0); %Monocytes 1.6 % (0.0-10.0); %Neutrophils 91.2 % (42.0-75.0); Hemoglobin 9.2 g/dL (14.0-18.0); Mean Corpuscular HGB CONC 33.7 g/dL (32.0-36.0); Mean Corpuscular Hemoglobin 30.8 pg (27.0-31.0); Mean Corpuscular Volume 91.6 fL (78.0-98.0); Platelet Count 192 thou/uL (130-400); RBC Distribution Width 11.7 % (11.5-14.5); Red Blood Cell (RBC) Count 2.98 mill/uL (4.70-6.10); White Blood Cell (WBC) Count 9.9 thou/uL (4.8-10.8)
[2021-06-30] MEDS: Clopidogrel Bisulfate 75 MG TAB PO SCH (15:14)
[2021-06-30] MEDS: Aspirin 81 mg Enteric Coated Tablet PO SCH (15:14)
[2021-06-30] MEDS: Carvedilol 3.125 MG TAB PO SCH ×2 (15:17→20:20)
[2021-06-30 15:29] LABS: Anion Gap 17 mmol/L (10-20); BUN (Urea Nitrogen) 55 mg/dL (8.4-25.7); Calc. Creatinine Clearance 30 mL/min (70-130); Calcium 7.8 mg/dL (7.8-10.44); Carbon Dioxide 14 mmol/L (22-29); Chloride 107 mmol/L (98-107); Glucose 350 mg/dL (70-105); Potassium 5.3 mmol/L (3.5-5.1); Sodium 133 mmol/L (136-145)
[2021-06-30] MEDS ORDERED: Sodium Bicarbonate Tab 325 MG TAB PO SCH (16:30)
[2021-06-30] MEDS: NPH, Human Insulin Isophane 300 UNIT/3 ML VIAL SC SCH (16:53)
[2021-06-30] MEDS: ceFAZolin 2 GM/Dextrose 50 ML 2 GM in Premix Bag 1 BAG IVPB SCH (16:53)
[2021-06-30] MEDS ORDERED: Sodium Bicarbonate 100 MEQ in Sodium Chloride 0.45% 1,000 ML IV SCH (17:00)
[2021-06-30] MEDS: Fentanyl 100 MCG/2 ML VIAL SLOW IVP PRN (17:47)
[2021-06-30] MEDS: Atorvastatin Calcium 40 MG TAB PO SCH (20:19)
[2021-06-30] MEDS: Sodium Bicarbonate Tab 325 MG TAB PO SCH (20:20)
[2021-07-01] MEDS: ceFAZolin 2 GM/Dextrose 50 ML 2 GM in Premix Bag 1 BAG IVPB SCH ×2 (00:05→08:52)
[2021-07-01] MEDS: HumaLOG 300 UNITS/3 ML VIAL SC PRN ×2 (00:23→04:06)
[2021-07-01 08:39] VITALS: BP 128/59; TEMP 97.8
[2021-07-01] MEDS: Carvedilol 3.125 MG TAB PO SCH (08:52)
[2021-07-01] MEDS: Sodium Bicarbonate Tab 325 MG TAB PO SCH (08:52)
[2021-07-01] MEDS: NPH, Human Insulin Isophane 300 UNIT/3 ML VIAL SC SCH (08:52)
[2021-07-01] MEDS: Fentanyl 100 MCG/2 ML VIAL SLOW IVP PRN (08:52)
[2021-07-01] MEDS ORDERED: Aspirin 325 mg Enteric Coated Tablet PO SCH (09:00)
== END 2021-07-01 11:34 | disposition home or self-care (01) | DRG 38 ==
LOC: ERS 09:15 → ERHOLD 11:58 → NEURO 20:23
PROVIDERS: ADMIT Internal Medicine; ATTEND Internal Medicine
PROC: 03CH0ZZ Extirpation of Matter from Right Common Carotid Artery, Open Approach (ICD-10-PCS; principal; 2021-06-30)
PROC: 03CM0ZZ Extirpation of Matter from Right External Carotid Artery, Open Approach (ICD-10-PCS; 2021-06-30)
PROC: 03CK0ZZ Extirpation of Matter from Right Internal Carotid Artery, Open Approach (ICD-10-PCS; 2021-06-30)
PROC: 03UH0KZ Supplement Right Common Carotid Artery with Nonautologous Tissue Substitute, Open Approach (ICD-10-PCS; 2021-06-30)
PROC: 03UK0KZ Supplement Right Internal Carotid Artery with Nonautologous Tissue Substitute, Open Approach (ICD-10-PCS; 2021-06-30)
PROC: 03UM0KZ Supplement Right External Carotid Artery with Nonautologous Tissue Substitute, Open Approach (ICD-10-PCS; 2021-06-30)
DX: I63.9 Cerebral infarction, unspecified (principal); G81.94 Hemiplegia, unspecified affecting left nondominant side; E87.1 Hypo-osmolality and hyponatremia; N18.4 Chronic kidney disease, stage 4 (severe); N17.9 Acute kidney failure, unspecified; E87.5 Hyperkalemia; E11.65 Type 2 diabetes mellitus with hyperglycemia; E78.00 Pure hypercholesterolemia, unspecified; I12.9 Hypertensive chronic kidney disease with stage 1 through stage 4 chronic kidney disease, or unspecified chronic kidney disease; E11.22 Type 2 diabetes mellitus with diabetic chronic kidney disease; Z20.822 Contact with and (suspected) exposure to COVID-19; I25.10 Atherosclerotic heart disease of native coronary artery without angina pectoris; K21.9 Gastro-esophageal reflux disease without esophagitis; E66.9 Obesity, unspecified; N18.30 Chronic kidney disease, stage 3 unspecified; E11.69 Type 2 diabetes mellitus with other specified complication; D63.1 Anemia in chronic kidney disease; I65.21 Occlusion and stenosis of right carotid artery; Z68.34 Body mass index [BMI] 34.0-34.9, adult; Z87.891 Personal history of nicotine dependence; Z79.899 Other long term (current) drug therapy; Z79.4 Long term (current) use of insulin; Z79.82 Long term (current) use of aspirin
CPT/HCPCS: 36415; 36416; 70450; 70490; 70549; 70551; 71045; 80048; 80053; 80061; 81003; 81015; 83036; 84484; 85025; 93005; 93306; 93880; 94640; 96374; A9579; C1713; C1768; J0171; J0360; J0690; J0780; J1100; J1200; J1642; J1644; J1650; J1815; J2001; J2405; J2550; J2704; J2720; J3010; J7042; J7050; J7620; Q0162; S0020; U0003; U0005

== ENCOUNTER 2021-09-04 10:55 | Inpatient (IN) | payer OTHER ==
[2021-09-04 17:18] VITALS: BMI 35.1
[2021-09-04] MEDS ORDERED: ceFAZolin 2 GM/Dextrose 50 ML 2 GM in Premix Bag 1 BAG IVPB SCH (18:15)
[2021-09-04] MEDS ORDERED: Tuberculin PPD 0.1 ML VIAL I-DERMAL SCH (19:00)
[2021-09-04 19:44] LABS: Hep C IgG Ab Non-Reactive (NonReactive); Hep C Index 0.09 S/CO (0-0.79)
[2021-09-04 20:05] LABS: SARS-CoV-2 NAA Rapid Test Not Detected (NotDetected)
[2021-09-05 04:06] LABS: Hep B Surf Ag Non-Reactive S/CO (NonReactive)
[2021-09-05 04:07] LABS: HBSAg Index 0.16 S/CO (0-0.99)
[2021-09-05 04:13] LABS: HBSAB Concentration Less than 8.00 mIU/mL; Hep B Surf AB Non-Reactive (NonReactive)
[2021-09-05] MEDS ORDERED: Dextrose 5% in Water 1,000 ML IV PRN (07:10)
[2021-09-05] MEDS ORDERED: Dextrose 50% Abboject 50 ML SYRINGE SLOW IVP PRN (07:10)
[2021-09-05] MEDS ORDERED: HumaLOG 300 UNITS/3 ML VIAL SC PRN (07:10)
[2021-09-05 08:22] LABS: #Basophils 0.1 thou/uL (0.0-0.2); #Eosinphils 0.4 thou/uL (0.0-0.7); #Lymphocytes 1.1 thou/uL (1.20-3.40); #Monocytes 0.6 thou/uL (0.11-0.59); #Neutrophils 5.7 thou/uL (1.40-6.50); %Basophils 0.7 % (0.0-1.0); %Eosinophils 4.7 % (0.0-10.0); %Monocytes 7.7 % (0.0-10.0); %Neutrophils 72.9 % (42.0-75.0); Hemoglobin 7.9 g/dL (14.0-18.0); Mean Corpuscular HGB CONC 34.8 g/dL (32.0-36.0); Mean Corpuscular Hemoglobin 31.4 pg (27.0-31.0); Mean Corpuscular Volume 90.1 fL (78.0-98.0); Mean Platelet Volume 6.7 fL (7.4-10.4); Platelet Count 252 thou/uL (130-400); RBC Distribution Width 12.4 % (11.5-14.5); Red Blood Cell (RBC) Count 2.51 mill/uL (4.70-6.10); White Blood Cell (WBC) Count 7.8 thou/uL (4.8-10.8)
[2021-09-05] MEDS: Carvedilol 3.125 MG TAB PO SCH ×2 (08:25→20:53)
[2021-09-05 08:41] LABS: ALT (SGPT) 21 U/L (8-55); AST (SGOT) 15 U/L (5-34); Albumin 3.2 g/dL (3.5-5.0); Alkaline Phosphatase 51 U/L (40-110); Anion Gap 20 mmol/L (10-20); BUN (Urea Nitrogen) 100 mg/dL (8.4-25.7); Bilirubin, Total 0.3 mg/dL (0.2-1.2); Calc. Creatinine Clearance 13 mL/min (70-130); Calcium 8.1 mg/dL (7.8-10.44); Carbon Dioxide 14 mmol/L (22-29); Chloride 109 mmol/L (98-107); Globulin 3.4 g/dL (2.4-3.5); Glucose 151 mg/dL (70-105); Potassium 5.6 mmol/L (3.5-5.1); Protein, Total 6.6 g/dL (6.0-8.3); Prothrombin Time 13.7 sec (12.0-14.7); Sodium 137 mmol/L (136-145)
[2021-09-05 08:42] LABS: PTT 38.8 sec (22.9-36.1)
[2021-09-05] MEDS: Atorvastatin Calcium 40 MG TAB PO SCH (09:05)
[2021-09-05] MEDS: Aspirin Chewable 81 MG TAB PO SCH (09:05)
[2021-09-05] MEDS: Tamsulosin HCl 0.4 MG CAP PO SCH (09:05)
[2021-09-05] MEDS ORDERED: Bupivacaine 0.25% 10 ML VIAL ONE (09:34)
[2021-09-05] MEDS ORDERED: Lidocaine 1% w/Epinephrine 1:100K 30 ML VIAL ONE (09:34)
[2021-09-05] MEDS ORDERED: Propofol 500 MG/50 ML VIAL ONE (09:40)
[2021-09-05] MEDS ORDERED: Heparin 10,000 UNITS/ 10 ML VIAL ONE (09:45)
[2021-09-05] MEDS ORDERED: ceFAZolin 2 GM/DEX 5% 100 ML BAG ONE (10:02)
[2021-09-05] MEDS ORDERED: PHENYLEPHRINE-NS 100 MCG/ML 10 ML SYRINGE ONE (10:07)
[2021-09-05] MEDS ORDERED: Lidocaine 1% PF 5 ML VIAL ONE (10:07)
[2021-09-05] MEDS ORDERED: Metoclopramide HCl 10 MG/2 ML VIAL ONE (10:07)
[2021-09-05] MEDS ORDERED: ePHEDrine 50 MG/ML VIAL ONE (10:07)
[2021-09-05] MEDS ORDERED: Ondansetron PF 4 MG/2 ML Vial ONE ×3 (10:07→10:46)
[2021-09-05] MEDS ORDERED: Succinylcholine 200 MG/10 ml SYRINGE FS ONE (10:07)
[2021-09-05] MEDS ORDERED: PROPOFOL 200 MG/20 ML VIAL ONE (10:07)
[2021-09-05] MEDS ORDERED: Ondansetron PF 4 MG/2 ML Vial IVP PRN (11:15)
[2021-09-05] MEDS ORDERED: Ondansetron PF 4 MG/2 ML Vial IVP SCH (11:15)
[2021-09-05] MEDS ORDERED: Ondansetron ODT 8 MG TAB SL PRN (11:15)
[2021-09-05] MEDS ORDERED: Ondansetron ODT 4 MG TAB PO PRN (11:15)
[2021-09-05] MEDS ORDERED: Morphine 4 MG/ML VIAL SLOW IVP PRN (12:36)
[2021-09-05] MEDS: traMADol HCl 50 MG TAB PO PRN ×2 (13:01→20:55)
[2021-09-06] MEDS ORDERED: Tuberculin PPD 0.1 ML VIAL I-DERMAL SCH (02:00)
[2021-09-06 06:28] LABS: Albumin 3.3 g/dL (3.5-5.0); Anion Gap 19 mmol/L (10-20); BUN (Urea Nitrogen) 100 mg/dL (8.4-25.7); BUN/Creatinine Ratio 9.12; Calc. Creatinine Clearance 13 mL/min (70-130); Calcium 8.1 mg/dL (7.8-10.44); Carbon Dioxide 16 mmol/L (22-29); Chloride 108 mmol/L (98-107); Glucose 140 mg/dL (70-105); Potassium 5.4 mmol/L (3.5-5.1); Sodium 138 mmol/L (136-145)
[2021-09-06 06:34] LABS: Phosphorus 10.3 mg/dL (2.3-4.7)
[2021-09-06] MEDS: Atorvastatin Calcium 40 MG TAB PO SCH (08:20)
[2021-09-06] MEDS: Tamsulosin HCl 0.4 MG CAP PO SCH (08:20)
[2021-09-06] MEDS: Aspirin Chewable 81 MG TAB PO SCH (08:20)
[2021-09-06] MEDS: Carvedilol 3.125 MG TAB PO SCH ×2 (08:20→20:43)
[2021-09-06] MEDS ORDERED: READ PPD TEST SITE PO SCH (09:00)
[2021-09-06] MEDS ORDERED: Heparin 10,000 UNITS/ 10 ML VIAL ONE (11:06)
[2021-09-07] MEDS ORDERED: CEFAZOLIN 2 GM, IV Admixture Fee-Chemo 1 UNITS in Sodium Chloride 0.9% 100 ML IVPB SCH (07:30)
[2021-09-07] MEDS: Carvedilol 3.125 MG TAB PO SCH ×2 (08:17→21:39)
[2021-09-07] MEDS: Ergocalciferol 1.25 MG(50,000 UNITS) CAP PO SCH ×2 (10:13→16:29)
[2021-09-07] MEDS: Aspirin Chewable 81 MG TAB PO SCH ×2 (10:13→15:13)
[2021-09-07] MEDS: Atorvastatin Calcium 40 MG TAB PO SCH ×2 (10:13→15:13)
[2021-09-07] MEDS: Lisinopril 10 MG TAB PO SCH ×2 (10:14→15:21)
[2021-09-07] MEDS: Tamsulosin HCl 0.4 MG CAP PO SCH ×2 (10:14→15:13)
[2021-09-07 11:53] LABS: Anion Gap 16 mmol/L (10-20); BUN (Urea Nitrogen) 80 mg/dL (8.4-25.7); Calc. Creatinine Clearance 15 mL/min (70-130); Calcium 7.9 mg/dL (7.8-10.44); Carbon Dioxide 19 mmol/L (22-29); Chloride 108 mmol/L (98-107); Glucose 113 mg/dL (70-105); Potassium 5.3 mmol/L (3.5-5.1); Sodium 138 mmol/L (136-145)
[2021-09-07 16:42] LABS: Hep B Core Total Ab Non-Reactive (NonReactive); Hep B Core Total Index 0.09 S/CO (0-0.79)
[2021-09-07] MEDS ORDERED: FLU VACC QS2021-22(6MOS UP)/PF 60 MCG/0.5 ML SYRINGE IM ONE (18:00)
[2021-09-08] MEDS ORDERED: READ PPD TEST SITE PO SCH (02:00)
[2021-09-08] MEDS: Carvedilol 3.125 MG TAB PO SCH (05:01)
[2021-09-08 05:18] LABS: #Basophils 0.1 thou/uL (0.0-0.2); #Eosinphils 0.2 thou/uL (0.0-0.7); #Monocytes 0.6 thou/uL (0.11-0.59); #Neutrophils 4.3 thou/uL (1.40-6.50); %Basophils 0.9 % (0.0-1.0); %Eosinophils 3.8 % (0.0-10.0); %Lymphocytes 15.6 % (21.0-51.0); %Monocytes 9.7 % (0.0-10.0); Hemoglobin 7.7 g/dL (14.0-18.0); Mean Corpuscular HGB CONC 33.6 g/dL (32.0-36.0); Mean Corpuscular Hemoglobin 30.5 pg (27.0-31.0); Mean Corpuscular Volume 90.7 fL (78.0-98.0); Mean Platelet Volume 6.6 fL (7.4-10.4); Platelet Count 256 thou/uL (130-400); RBC Distribution Width 12.3 % (11.5-14.5); Red Blood Cell (RBC) Count 2.53 mill/uL (4.70-6.10); White Blood Cell (WBC) Count 6.1 thou/uL (4.8-10.8)
[2021-09-08 05:42] LABS: Anion Gap 16 mmol/L (10-20); BUN (Urea Nitrogen) 70 mg/dL (8.4-25.7); Calc. Creatinine Clearance 16 mL/min (70-130); Calcium 8.4 mg/dL (7.8-10.44); Carbon Dioxide 23 mmol/L (22-29); Chloride 104 mmol/L (98-107); Glucose 154 mg/dL (70-105); Potassium 4.7 mmol/L (3.5-5.1); Sodium 138 mmol/L (136-145)
[2021-09-08] MEDS ORDERED: Heparin 10,000 UNITS/ 10 ML VIAL ONE ×2 (09:36→10:14)
[2021-09-08] MEDS ORDERED: Bupivacaine 0.25% 10 ML VIAL ONE ×2 (09:36→11:37)
[2021-09-08] MEDS ORDERED: Heparin 5,000 UNITS/ML VIAL ONE (09:36)
[2021-09-08] MEDS ORDERED: Protamine Sulfate 50 MG/5 ML VIAL ONE (09:36)
[2021-09-08] MEDS ORDERED: Lidocaine 1% w/Epinephrine 1:100K 20 ML VIAL ONE ×2 (09:36→11:37)
[2021-09-08] MEDS ORDERED: Fentanyl 100 MCG/2 ML VIAL ONE (09:52)
[2021-09-08] MEDS ORDERED: ceFAZolin (BATCH) 2 GM/100 ML BAG ONE ×2 (09:56→09:57)
[2021-09-08] MEDS ORDERED: Rocuronium Bromide 10 MG/ML (10ML VIAL) ONE (10:11)
[2021-09-08] MEDS ORDERED: PROPOFOL 200 MG/20 ML VIAL ONE (10:11)
[2021-09-08] MEDS ORDERED: PHENYLEPHRINE-NS 100 MCG/ML 10 ML SYRINGE ONE (10:11)
[2021-09-08] MEDS ORDERED: Lidocaine 1% PF 5 ML VIAL ONE (10:11)
[2021-09-08] MEDS ORDERED: Glycopyrrolate 0.2 MG/ML 5 ML SYRINGE ONE (10:11)
[2021-09-08] MEDS ORDERED: ePHEDrine 50 MG/ML VIAL ONE (10:11)
[2021-09-08] MEDS: traMADol HCl 50 MG TAB PO PRN (17:05)
[2021-09-08] MEDS: Atorvastatin Calcium 40 MG TAB PO SCH (17:06)
[2021-09-08] MEDS: Tamsulosin HCl 0.4 MG CAP PO SCH (17:06)
[2021-09-08] MEDS: Aspirin Chewable 81 MG TAB PO SCH (17:06)
[2021-09-08] MEDS: Lisinopril 10 MG TAB PO SCH (17:08)
[2021-09-08 17:29] VITALS: BP 108/68; TEMP 97.6
[2021-09-09] MEDS ORDERED: READ PPD TEST SITE PO SCH (02:00)
== END 2021-09-08 18:43 | disposition home or self-care (01) | DRG 673 ==
LOC: T4-A 16:45
PROVIDERS: ADMIT Internal Medicine; ATTEND Internal Medicine
PROC: 0JH63XZ Insertion of Tunneled Vascular Access Device into Chest Subcutaneous Tissue and Fascia, Percutaneous Approach (ICD-10-PCS; 2021-09-05)
PROC: 02HV33Z Insertion of Infusion Device into Superior Vena Cava, Percutaneous Approach (ICD-10-PCS; 2021-09-05)
PROC: B518ZZA Fluoroscopy of Superior Vena Cava, Guidance (ICD-10-PCS; 2021-09-05)
PROC: 031C0ZF Bypass Left Radial Artery to Lower Arm Vein, Open Approach (ICD-10-PCS; principal; 2021-09-08)
DX: I12.0 Hypertensive chronic kidney disease with stage 5 chronic kidney disease or end stage renal disease (principal); N18.6 End stage renal disease; N17.9 Acute kidney failure, unspecified; Z20.822 Contact with and (suspected) exposure to COVID-19; F17.210 Nicotine dependence, cigarettes, uncomplicated; E78.5 Hyperlipidemia, unspecified; I25.10 Atherosclerotic heart disease of native coronary artery without angina pectoris; N40.0 Benign prostatic hyperplasia without lower urinary tract symptoms; E11.22 Type 2 diabetes mellitus with diabetic chronic kidney disease; E66.9 Obesity, unspecified; Z79.4 Long term (current) use of insulin; Z79.899 Other long term (current) drug therapy; Z99.2 Dependence on renal dialysis; Z68.35 Body mass index [BMI] 35.0-35.9, adult
CPT/HCPCS: 36415; 71045; 80048; 80053; 80069; 85025; 85610; 85730; 86580; 86704; 86706; 86803; 87340; 90935; 93005; 93010; 93306; 93970; C1751; C1752; C1776; G0257; J0690; J1644; J2405; J2704; J2720; J2765; J3010; J3490; S0020; U0002

== ENCOUNTER 2022-03-08 15:20 | Inpatient (IN) | payer OTHER, MEDICARE ==
[~2022-03-08 15:20] MED LIST: Iopamidol-370 76% 500 ML 1 ML ONE
[2022-03-08 16:03] LABS: #Eosinphils 0.1 thou/uL (0.0-0.7); #Monocytes 0.8 thou/uL (0.11-0.59); #Neutrophils 5.5 thou/uL (1.40-6.50); %Basophils 0.6 % (0.0-1.0); %Eosinophils 1.6 % (0.0-10.0); %Lymphocytes 13.8 % (21.0-51.0); %Monocytes 10.6 % (0.0-10.0); %Neutrophils 73.4 % (42.0-75.0); Hemoglobin 7.9 g/dL (14.0-18.0); Mean Corpuscular HGB CONC 34.8 g/dL (32.0-36.0); Mean Corpuscular Hemoglobin 33.6 pg (27.0-31.0); Mean Corpuscular Volume 96.6 fL (78.0-98.0); Mean Platelet Volume 7.2 fL (7.4-10.4); Platelet Count 249 thou/uL (130-400); RBC Distribution Width 13.9 % (11.5-14.5); Red Blood Cell (RBC) Count 2.34 mill/uL (4.70-6.10); White Blood Cell (WBC) Count 7.4 thou/uL (4.8-10.8)
[2022-03-08 16:37] LABS: ALT (SGPT) 13 U/L (8-55); AST (SGOT) 13 U/L (5-34); Alkaline Phosphatase 59 U/L (40-110); Anion Gap 25 mmol/L (10-20); BUN (Urea Nitrogen) 104 mg/dL (8.4-25.7); Bilirubin, Total 0.3 mg/dL (0.2-1.2); Calc. Creatinine Clearance 0 mL/min (70-130); Calcium 8.8 mg/dL (7.8-10.44); Carbon Dioxide 19 mmol/L (22-29); Chloride 92 mmol/L (98-107); Estimated GFR 2; Globulin 3.8 g/dL (2.4-3.5); Glucose 293 mg/dL (70-105); Lipase 55 U/L (8-78); Potassium 4.4 mmol/L (3.5-5.1); Protein, Total 7.8 g/dL (6.0-8.3); Sodium 132 mmol/L (136-145)
[2022-03-08] MEDS ORDERED: Ondansetron PF 4 MG/2 ML Vial ONE (17:33)
[2022-03-08] MEDS ORDERED: Fentanyl 100 MCG/2 ML VIAL ONE ×2 (17:33→22:18)
[2022-03-08 20:26] LABS: Troponin I 0.018 ng/mL (< 0.028)
[2022-03-08] MEDS ORDERED: Ondansetron PF 4 MG/2 ML Vial IVP PRN (22:01)
[2022-03-08] MEDS ORDERED: Ondansetron ODT 4 MG TAB PO PRN (22:01)
[2022-03-08] MEDS ORDERED: Acetaminophen 325 MG TAB PO PRN (22:01)
[2022-03-08] MEDS ORDERED: Acetaminophen 650 MG Suppository PR PRN (22:01)
[2022-03-08 22:44] LABS: Squamous Epithelial None Seen HPF (0-3); WBC/HPF 0-3 HPF (0-3)
[2022-03-08 22:46] LABS: Bilirubin Negative (Negative); Blood, Urine Moderate (Negative); Glucose, Urine (Dipstick) 500 mg/dL (Negative); Ketone, Urine Negative (Negative); Leukocyte Negative (Negative); Nitrite Negative (Negative); Protein, Urine (Dipstick) > or equal to 300 mg/dL (Neg-Trace); Urobilinogen 0.2 mg/dL (Less than 2); pH, Urine 6.5 (5.0-9.0)
[2022-03-08 22:47] LABS: Clarity Clear (Clear)
[2022-03-08 22:58] LABS: Bacteria/HPF Rare-Few HPF (None Seen)
[2022-03-08] MEDS: Fentanyl 100 MCG/2 ML VIAL SLOW IVP SCH (23:00)
[2022-03-08 23:30] LABS: Troponin I 0.022 ng/mL (< 0.028)
[2022-03-08 23:39] VITALS: BMI 35.4
[2022-03-08 23:55] LABS: SARS-CoV-2 NAA Rapid Test Not Detected (NotDetected)
[2022-03-09] MEDS ORDERED: Dextrose 5% in Water 1,000 ML IV PRN (00:22)
[2022-03-09] MEDS ORDERED: Dextrose 50% Abboject 50 ML SYRINGE SLOW IVP PRN (00:22)
[2022-03-09] MEDS ORDERED: HumaLOG 300 UNITS/3 ML VIAL SC PRN (00:22)
[2022-03-09] MEDS ORDERED: Heparin 10,000 UNITS/ 10 ML VIAL SLOW IVP SCH (00:45)
[2022-03-09] MEDS ORDERED: Heparin 25,000 units/D5W 500 ML IVPB SCH (00:45)
[2022-03-09 00:58] LABS: Hemoglobin 7.2 g/dL (14.0-18.0); Platelet Count 214 thou/uL (130-400)
[2022-03-09 01:35] LABS: Troponin I 0.029 ng/mL (< 0.028)
[2022-03-09] MEDS: Nitroglycerin 0.4 MG TAB (25 Tab Bottle) SL PRN ×2 (01:59→02:06)
[2022-03-09] MEDS: Fentanyl 100 MCG/2 ML VIAL SLOW IVP SCH (02:35)
[2022-03-09] MEDS ORDERED: Apixaban 5 MG TAB PO SCH (03:00)
[2022-03-09] MEDS ORDERED: Fentanyl 100 MCG/2 ML VIAL SLOW IVP SCH ×2 (04:45→11:00)
[2022-03-09 05:06] LABS: #Eosinphils 0.1 thou/uL (0.0-0.7); #Lymphocytes 0.7 thou/uL (1.20-3.40); #Monocytes 0.8 thou/uL (0.11-0.59); #Neutrophils 4.8 thou/uL (1.40-6.50); %Basophils 0.4 % (0.0-1.0); %Eosinophils 2.2 % (0.0-10.0); %Lymphocytes 11.4 % (21.0-51.0); %Monocytes 11.9 % (0.0-10.0); Hemoglobin 7.1 g/dL (14.0-18.0); Mean Corpuscular HGB CONC 34.1 g/dL (32.0-36.0); Mean Corpuscular Hemoglobin 33.2 pg (27.0-31.0); Mean Corpuscular Volume 97.5 fL (78.0-98.0); Mean Platelet Volume 7.2 fL (7.4-10.4); Platelet Count 221 thou/uL (130-400); RBC Distribution Width 13.9 % (11.5-14.5); Red Blood Cell (RBC) Count 2.13 mill/uL (4.70-6.10); White Blood Cell (WBC) Count 6.5 thou/uL (4.8-10.8)
[2022-03-09 05:11] LABS: Iron 33 ug/dL (65-175); Iron Binding Capacity, Total 265 mcg/dL (261-462)
[2022-03-09 05:24] LABS: Anion Gap 26 mmol/L (10-20); BUN (Urea Nitrogen) 102 mg/dL (8.4-25.7); Calc. Creatinine Clearance 7 mL/min (70-130); Calcium 8.9 mg/dL (7.8-10.44); Carbon Dioxide 19 mmol/L (22-29); Chloride 92 mmol/L (98-107); Estimated GFR 3; Glucose 313 mg/dL (70-105); Iron 32 ug/dL (65-175); Iron Binding Capacity, Total 273 mcg/dL (261-462); Potassium 4.3 mmol/L (3.5-5.1); Sodium 133 mmol/L (136-145)
[2022-03-09 05:30] LABS: Ferritin 483.45 ng/mL (22-322)
[2022-03-09 05:44] LABS: HBSAg Index 0.24 S/CO (0-0.99); Hep B Core Total Ab Non-Reactive (NonReactive); Hep B Core Total Index 0.06 S/CO (0-0.79); Hep B Surf Ag Non-Reactive S/CO (NonReactive); Hep C IgG Ab Non-Reactive (NonReactive); Hep C Index 0.15 S/CO (0-0.79)
[2022-03-09 05:49] LABS: HBSAB Concentration 9.24 mIU/mL; Hep B Surf AB Indeterminate (NonReactive)
[2022-03-09] MEDS: HumaLOG 300 UNITS/3 ML VIAL SC PRN ×3 (06:37→22:32)
[2022-03-09] MEDS ORDERED: Ergocalciferol 1.25 MG(50,000 UNITS) CAP PO SCH ×2 (09:00)
[2022-03-09] MEDS: Docusate 100 MG CAP PO SCH ×2 (10:38→20:47)
[2022-03-09] MEDS: Aspirin Chewable 81 MG TAB PO SCH (10:38)
[2022-03-09] MEDS: hydrOXYzine 25 MG TAB PO SCH ×3 (10:39→20:47)
[2022-03-09] MEDS: Sevelamer Carbonate 800 MG TAB PO SCH ×2 (12:04→17:26)
[2022-03-09] MEDS ORDERED: Colchicine 0.6 MG TAB PO SCH (15:45)
[2022-03-09] MEDS ORDERED: Carvedilol 3.125 MG TAB PO SCH (17:00)
[2022-03-09 17:24] LABS: BF Color Colorless; Body Fluid Source Peritoneal Fluid; Clarity Clear (Clear); Tube # EDTA
[2022-03-09 17:25] LABS: BF RBC Count - Manual 2 /cu.mm; BF WBC/Nonhematics Ct.-Manual 52 /cu.mm
[2022-03-09] MEDS: Carvedilol 6.25 MG TAB PO SCH (17:26)
[2022-03-09] MEDS: Apixaban 5 MG TAB PO SCH (17:33)
[2022-03-09] MEDS: Morphine 4 MG/ML VIAL SLOW IVP PRN ×2 (18:05→22:39)
[2022-03-09 18:31] LABS: BF Segmented Neutrophils 57 %; Cell Count Non Hematic 38 %; Eosinophils 1 %; Lymphocytes 3 %
[2022-03-09] MEDS: Atorvastatin Calcium 40 MG TAB PO SCH (20:47)
[2022-03-09] MEDS: HYDROcodone/Acetaminophen 10/325 mg Tablet PO PRN (20:49)
[2022-03-09] MEDS ORDERED: Non-Formulary Item 1 EACH (Atorvastatin Calcium [Atorvastatin Calcium] 80 MG Tablet) PO SCH (21:00)
[2022-03-10] MEDS: HYDROcodone/Acetaminophen 10/325 mg Tablet PO PRN ×3 (03:48→20:36)
[2022-03-10 05:14] LABS: Cardiac Risk 3.8 (Less than 4.5)
[2022-03-10] MEDS: Apixaban 5 MG TAB PO SCH ×2 (05:51→16:36)
[2022-03-10] MEDS: HumaLOG 300 UNITS/3 ML VIAL SC PRN ×2 (06:35→16:37)
[2022-03-10] MEDS: Docusate 100 MG CAP PO SCH ×2 (08:31→20:35)
[2022-03-10] MEDS: hydrOXYzine 25 MG TAB PO SCH ×2 (08:31→16:04)
[2022-03-10] MEDS: Carvedilol 6.25 MG TAB PO SCH ×2 (08:31→16:04)
[2022-03-10] MEDS: Aspirin Chewable 81 MG TAB PO SCH (08:31)
[2022-03-10] MEDS: Sevelamer Carbonate 800 MG TAB PO SCH ×3 (08:31→16:02)
[2022-03-10] MEDS: Morphine 4 MG/ML VIAL SLOW IVP PRN ×2 (08:36→16:36)
[2022-03-10] MEDS ORDERED: predniSONE 20 MG TAB PO SCH (11:15)
[2022-03-10] MEDS: Atorvastatin Calcium 40 MG TAB PO SCH (20:36)
[2022-03-10] MEDS ORDERED: hydrOXYzine 25 MG TAB PO SCH (21:00)
[2022-03-11] MEDS: Apixaban 5 MG TAB PO SCH (05:28)
[2022-03-11] MEDS: HumaLOG 300 UNITS/3 ML VIAL SC PRN (05:28)
[2022-03-11 05:34] LABS: #Lymphocytes 0.6 thou/uL (1.20-3.40); #Monocytes 0.5 thou/uL (0.11-0.59); %Eosinophils 0.1 % (0.0-10.0); %Lymphocytes 7.2 % (21.0-51.0); %Monocytes 6.2 % (0.0-10.0); %Neutrophils 86.6 % (42.0-75.0); Mean Corpuscular HGB CONC 34.1 g/dL (32.0-36.0); Mean Corpuscular Hemoglobin 32.7 pg (27.0-31.0); Mean Platelet Volume 7.4 fL (7.4-10.4); Platelet Count 263 thou/uL (130-400); RBC Distribution Width 13.4 % (11.5-14.5); Red Blood Cell (RBC) Count 2.45 mill/uL (4.70-6.10); White Blood Cell (WBC) Count 8.1 thou/uL (4.8-10.8)
[2022-03-11] MEDS: Morphine 4 MG/ML VIAL SLOW IVP PRN (05:34)
[2022-03-11 05:54] LABS: ALT (SGPT) 16 U/L (8-55); AST (SGOT) 15 U/L (5-34); Albumin 4.2 g/dL (3.5-5.0); Alkaline Phosphatase 58 U/L (40-110); Anion Gap 29 mmol/L (10-20); BUN (Urea Nitrogen) 100 mg/dL (8.4-25.7); Bilirubin, Total 0.5 mg/dL (0.2-1.2); Calc. Creatinine Clearance 7 mL/min (70-130); Calcium 9.4 mg/dL (7.8-10.44); Carbon Dioxide 17 mmol/L (22-29); Chloride 90 mmol/L (98-107); Estimated GFR 3; Globulin 4.2 g/dL (2.4-3.5); Glucose 235 mg/dL (70-105); Potassium 4.7 mmol/L (3.5-5.1); Protein, Total 8.4 g/dL (6.0-8.3); Sodium 131 mmol/L (136-145)
[2022-03-11 07:50] VITALS: BP 163/76; TEMP 98
[2022-03-11] MEDS ORDERED: predniSONE 20 MG TAB PO SCH (08:00)
[2022-03-11] MEDS: hydrOXYzine 25 MG TAB PO SCH (08:30)
[2022-03-11] MEDS: Carvedilol 6.25 MG TAB PO SCH (08:30)
[2022-03-11] MEDS: Aspirin Chewable 81 MG TAB PO SCH (08:32)
[2022-03-11] MEDS: Sevelamer Carbonate 800 MG TAB PO SCH (08:32)
[2022-03-11] MEDS: Docusate 100 MG CAP PO SCH (08:33)
[2022-03-13] MEDS ORDERED: predniSONE 20 MG TAB PO SCH (08:00)
[2022-03-13] MEDS ORDERED: Colchicine 0.6 MG TAB PO SCH (21:00)
[2022-03-16] MEDS ORDERED: predniSONE 20 MG TAB PO SCH (08:00)
[2022-03-20] MEDS ORDERED: predniSONE 5 MG TAB PO SCH (08:00)
== END 2022-03-11 11:40 | disposition home or self-care (01) | DRG 314 ==
LOC: ERS 15:20 → ERHOLD 19:26 → 2SW 23:12
PROVIDERS: ADMIT Student in an Organized Health Care Education/Training Program; ATTEND Family Medicine
PROC: 3E1M39Z Irrigation of Peritoneal Cavity using Dialysate, Percutaneous Approach (ICD-10-PCS; principal; 2022-03-08)
PROC: 3E1M39Z Irrigation of Peritoneal Cavity using Dialysate, Percutaneous Approach (ICD-10-PCS; 2022-03-09)
PROC: 3E1M39Z Irrigation of Peritoneal Cavity using Dialysate, Percutaneous Approach (ICD-10-PCS; 2022-03-10)
DX: I31.9 Disease of pericardium, unspecified (principal); N18.6 End stage renal disease; E87.1 Hypo-osmolality and hyponatremia; I77.4 Celiac artery compression syndrome; I12.0 Hypertensive chronic kidney disease with stage 5 chronic kidney disease or end stage renal disease; E78.5 Hyperlipidemia, unspecified; E11.51 Type 2 diabetes mellitus with diabetic peripheral angiopathy without gangrene; D63.1 Anemia in chronic kidney disease; E11.22 Type 2 diabetes mellitus with diabetic chronic kidney disease; E78.00 Pure hypercholesterolemia, unspecified; I25.10 Atherosclerotic heart disease of native coronary artery without angina pectoris; Z20.822 Contact with and (suspected) exposure to COVID-19; Z79.82 Long term (current) use of aspirin; Z87.891 Personal history of nicotine dependence; Z79.899 Other long term (current) drug therapy; Z99.2 Dependence on renal dialysis
CPT/HCPCS: 36415; 36416; 71045; 71275; 74174; 80048; 80053; 80061; 81003; 81015; 82728; 83540; 83550; 83605; 83690; 84484; 85025; 85060; 85379; 85730; 86704; 86850; 86900; 86901; 87070; 87086; 87205; 87340; 89051; 90945; 93005; 93306; 94760; 96374; 96376; G0257; J1644; J1815; J2270; J2405; J3010; J7512; Q9967; U0002

== ENCOUNTER 2022-07-09 11:27 | Emergency (ER) | payer OTHER, MEDICARE ==
[2022-07-09 12:06] LABS: Hemoglobin 7.5 g/dL (14.0-18.0); Mean Corpuscular HGB CONC 34.9 g/dL (32.0-36.0); Mean Corpuscular Hemoglobin 32.3 pg (27.0-31.0); Mean Corpuscular Volume 92.5 fl (78.0-98.0); Mean Platelet Volume 7.3 fL (7.4-10.4); Platelet Count 209 10x3/uL (130-400); RBC Distribution Width 15.3 % (11.5-14.5); Red Blood Cell (RBC) Count 2.31 mill/uL (4.70-6.10); White Blood Cell (WBC) Count 4.4 10x3/uL (4.8-10.8)
[2022-07-09 12:25] LABS: Anion Gap 27 mmol/L (10-20); BUN (Urea Nitrogen) 100 mg/dL (8.4-25.7); Calc. Creatinine Clearance 0 mL/min (70-130); Carbon Dioxide 18 mmol/L (22-29); Chloride 94 mmol/L (98-107); Sodium 134 mmol/L (136-145)
[2022-07-09 12:26] LABS: ALT (SGPT) 20 U/L (8-55); AST (SGOT) 18 U/L (5-34); Albumin 3.6 g/dL (3.5-5.0); Alkaline Phosphatase 76 U/L (40-110); Bilirubin, Total 0.4 mg/dL (0.2-1.2); Calcium 8.8 mg/dL (7.8-10.44); Estimated GFR 3; Globulin 3.4 g/dL (2.4-3.5); Glucose 223 mg/dL (70-105)
[2022-07-09 12:33] LABS: Band 6 % (5-11); Eosinophils 3 % (0-10); Lymphocytes 22 % (21-51); MDiff Complete? YES; Monocytes 14 % (0-10); Neutrophil 55 % (42-75); Polychromasia SLIGHT = 2-3 cells (100X) (0-2/hpf)
== END 2022-07-09 16:02 | disposition home or self-care (01) ==
LOC: ERS 11:27
DX: T85.611A Breakdown (mechanical) of intraperitoneal dialysis catheter, initial encounter (principal); E78.00 Pure hypercholesterolemia, unspecified; E11.22 Type 2 diabetes mellitus with diabetic chronic kidney disease; I12.9 Hypertensive chronic kidney disease with stage 1 through stage 4 chronic kidney disease, or unspecified chronic kidney disease; N18.6 End stage renal disease; D72.829 Elevated white blood cell count, unspecified; Z87.891 Personal history of nicotine dependence
CPT/HCPCS: 36415; 80053; 85025; 99283

== ENCOUNTER 2022-08-31 16:01 | Observation (INO) | payer MEDICARE, OTHER ==
[~2022-08-31 16:01] MED LIST changes: +Heparin 10,000 UNITS/ 10 ML VIAL ONE; -Iopamidol-370 76% 500 ML 1 ML ONE
[2022-08-31] MEDS ORDERED: Nitroglycerin 50 MG/250 ML BOT 250 ML ONE (16:07)
[2022-08-31] MEDS ORDERED: Rocuronium Bromide 10 MG/ML (10ML VIAL) ONE ×2 (16:16→17:18)
[2022-08-31] MEDS ORDERED: Furosemide 40 MG/4 ML VIAL ONE (16:17)
[2022-08-31 16:20] LABS: Actual Bicarbonate (HCO3v) 27 mEq/L (22-28); Analyzer IN Cardio ER; Base Excess 0.7 mEq/L (-2.0 to +3.0); Calcium, Ionized (venous) 1.09 mmol/L (1.16-1.32); Chloride (VBG) 93 mmol/L (98-106); Hemoglobin (Hb) 11.6 g/dL (13.1-17.2); Sodium 132.3 mmol/L (133-146); pH (venous) 7.34 (7.32-7.43)
[2022-08-31 16:28] LABS: #Eosinphils 0.1 thou/uL (0.0-0.7); #Monocytes 1.1 thou/uL (0.11-0.59); #Neutrophils 8.6 thou/uL (1.40-6.50); %Basophils 0.4 % (0.0-1.0); %Lymphocytes 8.8 % (21.0-51.0); %Monocytes 10.3 % (0.0-10.0); %Neutrophils 79.5 % (42.0-75.0); Hemoglobin 8.8 g/dL (14.0-18.0); Mean Corpuscular HGB CONC 31.9 g/dL (32.0-36.0); Mean Corpuscular Hemoglobin 29.7 pg (27.0-31.0); Mean Corpuscular Volume 93.1 fl (78.0-98.0); Mean Platelet Volume 6.7 fL (7.4-10.4); Platelet Count 411 10x3/uL (130-400); RBC Distribution Width 13.2 % (11.5-14.5); Red Blood Cell (RBC) Count 2.98 mill/uL (4.70-6.10); White Blood Cell (WBC) Count 10.8 10x3/uL (4.8-10.8)
[2022-08-31 16:43] LABS: PTT 35.6 sec (22.9-36.1)
[2022-08-31 17:22] LABS: ALT (SGPT) 8 U/L (8-55); AST (SGOT) 21 U/L (5-34); Albumin 3.5 g/dL (3.5-5.0); Alkaline Phosphatase 164 U/L (40-110); Anion Gap 23 mmol/L (10-20); BUN (Urea Nitrogen) 55 mg/dL (8.4-25.7); Bilirubin, Total 0.4 mg/dL (0.2-1.2); Calc. Creatinine Clearance 0 mL/min (70-130); Calcium 8.9 mg/dL (7.8-10.44); Carbon Dioxide 20 mmol/L (22-29); Chloride 92 mmol/L (98-107); Estimated GFR 5; Globulin 4.1 g/dL (2.4-3.5); Glucose 136 mg/dL (70-105); Potassium 5.4 mmol/L (3.5-5.1); Protein, Total 7.6 g/dL (6.0-8.3); Sodium 130 mmol/L (136-145)
[2022-08-31 17:27] LABS: Bacteria/HPF None Seen HPF (None Seen); Bilirubin Negative (Negative); Blood, Urine Trace (Negative); Clarity Clear (Clear); Glucose, Urine (Dipstick) 300 mg/dL (Negative); Ketone, Urine Negative (Negative); Leukocyte Negative Leu/uL (Negative); Nitrite Negative (Negative); Protein, Urine (Dipstick) 300 mg/dL (Neg-Trace); RBC/HPF 0-3 HPF (0-3); Specific Gravity, Urine 1.012 (1.002-1.036); Squamous Epithelial None Seen HPF (0-3); Urobilinogen Normal mg/dL (Less than 2)
[2022-08-31 18:17] LABS: CKMB 4.1 ng/mL (0-6.6)
[2022-08-31] MEDS ORDERED: Dextrose 50% Abboject 50 ML SYRINGE SLOW IVP PRN (18:32)
[2022-08-31] MEDS ORDERED: Dextrose 5% in Water 1,000 ML IV PRN (18:32)
[2022-08-31] MEDS ORDERED: HumaLOG 300 UNITS/3 ML VIAL SC PRN (18:32)
[2022-08-31 22:21] LABS: HBSAg Index 0.14 S/CO (0-0.99); Hep B Core Total Ab Non-Reactive (NonReactive); Hep B Core Total Index 0.11 S/CO (0-0.79); Hep B Surf Ag Non-Reactive S/CO (NonReactive); Hep C IgG Ab Non-Reactive (NonReactive); Hep C Index 0.19 S/CO (0-0.79)
[2022-08-31 22:32] LABS: HBSAB Concentration 33.53 mIU/mL; Hep B Surf AB Reactive (NonReactive)
[2022-08-31 23:33] VITALS: BMI 31.6
[2022-08-31] MEDS ORDERED: Nicotine 21 MG PATCH TD SCH (23:51)
[2022-08-31] MEDS ORDERED: Acetaminophen 325 MG TAB PO PRN (23:51)
[2022-09-01] MEDS ORDERED: Heparin 5,000 UNITS/ML VIAL SC SCH (00:15)
[2022-09-01] MEDS ORDERED: Docusate 100 MG CAP PO SCH ×2 (01:00→09:00)
[2022-09-01 05:14] LABS: Anion Gap 20 mmol/L (10-20); BUN (Urea Nitrogen) 31 mg/dL (8.4-25.7); Calc. Creatinine Clearance 19 mL/min (70-130); Calcium 9.2 mg/dL (7.8-10.44); Carbon Dioxide 18 mmol/L (22-29); Chloride 98 mmol/L (98-107); Estimated GFR 9; Glucose 141 mg/dL (70-105); Potassium 4.9 mmol/L (3.5-5.1); Sodium 131 mmol/L (136-145)
[2022-09-01] MEDS ORDERED: hydrOXYzine 25 MG TAB PO PRN (08:08)
[2022-09-01] MEDS ORDERED: HYDROcodone/Acetaminophen 5/325 mg Tablet PO PRN (08:08)
[2022-09-01 08:46] VITALS: BP 143/68; TEMP 98.4
[2022-09-01] MEDS ORDERED: Heparin 10,000 UNITS/ 10 ML VIAL ONE (08:57)
[2022-09-01] MEDS ORDERED: Carvedilol 6.25 MG TAB PO SCH (09:00)
[2022-09-01] MEDS ORDERED: Cinacalcet HCl 30 MG TAB PO SCH (09:00)
[2022-09-01] MEDS ORDERED: Gabapentin 300 MG CAP PO SCH (09:00)
[2022-09-01] MEDS ORDERED: Atorvastatin Calcium 40 MG TAB PO SCH (09:00)
[2022-09-01] MEDS ORDERED: Senokot 8.6 MG TAB PO SCH (09:00)
[2022-09-01] MEDS ORDERED: Sevelamer Carbonate 800 MG TAB PO SCH (12:00)
[2022-09-01 12:28] LABS: #Eosinphils 0.1 thou/uL (0.0-0.7); #Lymphocytes 0.6 thou/uL (1.20-3.40); #Neutrophils 6.1 thou/uL (1.40-6.50); %Basophils 0.2 % (0.0-1.0); %Eosinophils 1.4 % (0.0-10.0); %Lymphocytes 7.8 % (21.0-51.0); %Neutrophils 77.6 % (42.0-75.0); Hemoglobin 7.7 g/dL (14.0-18.0); Mean Corpuscular HGB CONC 34.2 g/dL (32.0-36.0); Mean Corpuscular Volume 90.6 fl (78.0-98.0); Mean Platelet Volume 6.5 fL (7.4-10.4); Platelet Count 312 10x3/uL (130-400); Red Blood Cell (RBC) Count 2.49 mill/uL (4.70-6.10); White Blood Cell (WBC) Count 7.8 10x3/uL (4.8-10.8)
[2022-09-01] MEDS: QUEtiapine 25 MG TAB PO SCH ×2 (15:11)
[2022-09-01] MEDS: Heparin 5,000 UNITS/ML VIAL SC SCH (15:11)
[2022-09-01] MEDS ORDERED: Amitriptyline HCl 25 MG TAB PO SCH (21:00)
[2022-09-02] MEDS ORDERED: Heparin 5,000 UNITS/ML VIAL SC SCH (09:00)
== END 2022-09-01 16:41 | disposition home or self-care (01) ==
LOC: ERS 16:01 → ERHOLD 18:32 → INTOOBSV 18:32 → 2NO 23:41
PROVIDERS: ADMIT Internal Medicine; ATTEND Internal Medicine
DX: I13.2 Hypertensive heart and chronic kidney disease with heart failure and with stage 5 chronic kidney disease, or end stage renal disease (principal); N18.6 End stage renal disease; E11.22 Type 2 diabetes mellitus with diabetic chronic kidney disease; I50.32 Chronic diastolic (congestive) heart failure; D63.1 Anemia in chronic kidney disease; J96.01 Acute respiratory failure with hypoxia; I25.10 Atherosclerotic heart disease of native coronary artery without angina pectoris; E78.5 Hyperlipidemia, unspecified; E87.5 Hyperkalemia; E87.1 Hypo-osmolality and hyponatremia; G47.33 Obstructive sleep apnea (adult) (pediatric); R41.82 Altered mental status, unspecified; T40.425A Adverse effect of tramadol, initial encounter; T40.2X5A Adverse effect of other opioids, initial encounter; S82.401D Unspecified fracture of shaft of right fibula, subsequent encounter for closed fracture with routine healing; E66.9 Obesity, unspecified; Z68.31 Body mass index [BMI] 31.0-31.9, adult; Z95.1 Presence of aortocoronary bypass graft; Z88.0 Allergy status to penicillin; Z87.891 Personal history of nicotine dependence; Z99.2 Dependence on renal dialysis; Z79.85 Long-term (current) use of injectable non-insulin antidiabetic drugs; Z79.891 Long term (current) use of opiate analgesic; Z79.899 Other long term (current) drug therapy; W19.XXXD Unspecified fall, subsequent encounter
CPT/HCPCS: 71045; 80048; 80053; 82553; 82805; 82962; 83605; 83880; 84484; 85025 ×2; 85610; 85730; 86704; 87040; 87086; 93005; 94660; 96372; 97116; G0378 ×3; 36415; 36416; 51702; 81003; 81015; 90935; 96374; G0257; J1644; J1940

== ENCOUNTER 2022-09-04 00:39 | Emergency (ER) | payer MEDICARE ==
[2022-09-04 01:25] LABS: Hemoglobin 7.9 g/dL (14.0-18.0); Mean Corpuscular Volume 90.8 fl (78.0-98.0); Mean Platelet Volume 6.6 fL (7.4-10.4); Platelet Count 341 10x3/uL (130-400); RBC Distribution Width 13.1 % (11.5-14.5); Red Blood Cell (RBC) Count 2.63 mill/uL (4.70-6.10); White Blood Cell (WBC) Count 12.7 10x3/uL (4.8-10.8)
[2022-09-04 01:42] LABS: Band 1 % (5-11); Eosinophils 2 % (0-10); Lymphocytes 3 % (21-51); MDiff Complete? YES; Monocytes 5 % (0-10); Neutrophil 89 % (42-75)
[2022-09-04 01:46] LABS: ALT (SGPT) 11 U/L (8-55); AST (SGOT) 22 U/L (5-34); Albumin 3.1 g/dL (3.5-5.0); Alkaline Phosphatase 155 U/L (40-110); Anion Gap 18 mmol/L (10-20); BUN (Urea Nitrogen) 53 mg/dL (8.4-25.7); Bilirubin, Total 0.4 mg/dL (0.2-1.2); Calc. Creatinine Clearance 0 mL/min (70-130); Calcium 8.8 mg/dL (7.8-10.44); Carbon Dioxide 26 mmol/L (22-29); Chloride 97 mmol/L (98-107); Estimated GFR 5; Globulin 4.5 g/dL (2.4-3.5); Glucose 174 mg/dL (70-105); Potassium 5.9 mmol/L (3.5-5.1); Protein, Total 7.6 g/dL (6.0-8.3); Sodium 135 mmol/L (136-145)
[2022-09-04 02:07] LABS: CKMB 1.7 ng/mL (0-6.6)
[2022-09-04 04:19] LABS: Troponin I 0.064 ng/mL (< 0.028)
== END 2022-09-04 04:37 | disposition home or self-care (01) ==
LOC: ERS 00:39
DX: R06.00 Dyspnea, unspecified (principal); R77.8 Other specified abnormalities of plasma proteins; D72.829 Elevated white blood cell count, unspecified; I12.0 Hypertensive chronic kidney disease with stage 5 chronic kidney disease or end stage renal disease; N18.6 End stage renal disease; E11.22 Type 2 diabetes mellitus with diabetic chronic kidney disease; E78.00 Pure hypercholesterolemia, unspecified; Z79.899 Other long term (current) drug therapy; Z79.4 Long term (current) use of insulin
CPT/HCPCS: 71045; 80053; 82553; 83880; 84484; 85025; 93005

== ENCOUNTER 2022-09-10 04:28 | Emergency (ER) | payer MEDICARE ==
[2022-09-10] MEDS ORDERED: Dexamethasone 10 MG/ML VIAL ONE (04:55)
== END 2022-09-10 05:09 | disposition home or self-care (01) ==
LOC: ERS 04:28
DX: J44.1 Chronic obstructive pulmonary disease with (acute) exacerbation (principal); E11.22 Type 2 diabetes mellitus with diabetic chronic kidney disease; N18.6 End stage renal disease; I12.0 Hypertensive chronic kidney disease with stage 5 chronic kidney disease or end stage renal disease; E78.00 Pure hypercholesterolemia, unspecified; Z87.891 Personal history of nicotine dependence; Z79.4 Long term (current) use of insulin; Z79.899 Other long term (current) drug therapy
CPT/HCPCS: 71045; 93005; J1100

== ENCOUNTER 2022-09-10 09:42 | Inpatient (IN) | payer MEDICARE ==
[~2022-09-10 09:42] MED LIST changes: +Iopamidol-370 76% 500 ML MDV (1 ML CHARGE) ONE
[2022-09-10 10:27] LABS: Hemoglobin 7.4 g/dL (14.0-18.0); Mean Corpuscular HGB CONC 32.8 g/dL (32.0-36.0); Mean Corpuscular Hemoglobin 29.5 pg (27.0-31.0); Mean Corpuscular Volume 89.9 fl (78.0-98.0); Mean Platelet Volume 6.6 fL (7.4-10.4); Platelet Count 345 10x3/uL (130-400); RBC Distribution Width 13.3 % (11.5-14.5); Red Blood Cell (RBC) Count 2.52 mill/uL (4.70-6.10); White Blood Cell (WBC) Count 10.1 10x3/uL (4.8-10.8)
[2022-09-10 10:39] LABS: ALT (SGPT) 11 U/L (8-55); AST (SGOT) 20 U/L (5-34); Albumin 3.6 g/dL (3.5-5.0); Alkaline Phosphatase 145 U/L (40-110); Anion Gap 18 mmol/L (10-20); BUN (Urea Nitrogen) 47 mg/dL (8.4-25.7); Bilirubin, Total 0.4 mg/dL (0.2-1.2); Calc. Creatinine Clearance 0 mL/min (70-130); Carbon Dioxide 27 mmol/L (22-29); Chloride 95 mmol/L (98-107); Estimated GFR 5; Globulin 3.8 g/dL (2.4-3.5); Glucose 206 mg/dL (70-105); Protein, Total 7.4 g/dL (6.0-8.3); Sodium 133 mmol/L (136-145)
[2022-09-10 10:46] LABS: Potassium 6.9 mmol/L (3.5-5.1)
[2022-09-10 10:48] LABS: #Eosinphils 0.2 thou/uL (0.0-0.7); #Lymphocytes 0.4 thou/uL (1.20-3.40); #Monocytes 0.2 thou/uL (0.11-0.59); #Neutrophils 9.3 thou/uL (1.40-6.50); %Basophils 0.3 % (0.0-1.0); %Eosinophils 1.5 % (0.0-10.0); %Lymphocytes 4.2 % (21.0-51.0); %Monocytes 2.2 % (0.0-10.0); %Neutrophils 91.9 % (42.0-75.0)
[2022-09-10] MEDS ORDERED: Dextrose 50% Abboject 50 ML SYRINGE ONE (10:54)
[2022-09-10] MEDS ORDERED: Insulin Regular 300 UNITS/3 ML VIAL ONE (10:54)
[2022-09-10] MEDS ORDERED: CALCIUM GLUC 1 GM/NS 50 ML BAG ONE (10:54)
[2022-09-10 10:58] LABS: CKMB 2.6 ng/mL (0-6.6)
[2022-09-10 10:59] LABS: SARS-CoV-2 NAA Rapid Test Not Detected (NotDetected)
[2022-09-10] MEDS ORDERED: Albuterol 2.5 MG/0.5 ML NEB ONE (11:01)
[2022-09-10 11:17] LABS: Actual Bicarbonate (HCO3a) 26.9 mEq/L (22-28); Analyzer IN Cardio ER; Base Excess (BEa) 0.5 mEq/L (-2.0 to +3.0); Calcium, Ionized (arterial) 1.17 mmol/L (1.12-1.30); Carboxyhemoglobin (COHb) 0.1 gm% (0.0-3.0); Hemoglobin (Hb) 8.2 g/dL (14.0-18.0); O2 Tension (PaO2), arterial 124.8 mmHg (80.0-100.0); Potassium - ABG Lab 5.89 mmol/L (3.70-5.30); pH, Arterial 7.32 (7.35-7.45)
[2022-09-10 11:20] LABS: Puncture Site RRA
[2022-09-10] MEDS ORDERED: Dextrose 50% Abboject 50 ML SYRINGE SLOW IVP PRN (12:23)
[2022-09-10] MEDS ORDERED: Dextrose 5% in Water 1,000 ML IV PRN (12:23)
[2022-09-10] MEDS ORDERED: HumaLOG 300 UNITS/3 ML VIAL SC PRN ×2 (12:26)
[2022-09-10 13:28] LABS: Iron 22 ug/dL (65-175); Iron Binding Capacity, Total 229 mcg/dL (261-462)
[2022-09-10 13:48] LABS: Ferritin 463.76 ng/mL (22-322)
[2022-09-10 16:56] LABS: Troponin I 0.045 ng/mL (< 0.028)
[2022-09-10] MEDS ORDERED: Sevelamer Carbonate 800 MG TAB PO SCH (17:00)
[2022-09-10] MEDS: Heparin 5,000 UNITS/ML VIAL SC SCH ×2 (17:57→20:41)
[2022-09-10] MEDS: Sevelamer Carbonate 800 MG TAB PO SCH (17:58)
[2022-09-10] MEDS: Carvedilol 6.25 MG TAB PO SCH (17:58)
[2022-09-10] MEDS: QUEtiapine 25 MG TAB PO SCH ×2 (17:58→20:41)
[2022-09-10] MEDS: Senokot 8.6 MG TAB PO SCH (20:41)
[2022-09-10] MEDS: Atorvastatin Calcium 40 MG TAB PO SCH (20:41)
[2022-09-10] MEDS: Docusate 100 MG CAP PO SCH (20:41)
[2022-09-11 08:02] VITALS: BMI 31.8
[2022-09-11] MEDS ORDERED: Heparin 10,000 UNITS/ 10 ML VIAL ONE (08:51)
[2022-09-11] MEDS: Carvedilol 6.25 MG TAB PO SCH ×2 (09:10→17:44)
[2022-09-11] MEDS: Docusate 100 MG CAP PO SCH ×2 (09:13→20:12)
[2022-09-11] MEDS: Cinacalcet HCl 30 MG TAB PO SCH (09:13)
[2022-09-11] MEDS: Gabapentin 300 MG CAP PO SCH (09:13)
[2022-09-11] MEDS: QUEtiapine 25 MG TAB PO SCH ×3 (09:14→20:12)
[2022-09-11] MEDS: Heparin 5,000 UNITS/ML VIAL SC SCH ×3 (09:14→20:12)
[2022-09-11] MEDS: Senokot 8.6 MG TAB PO SCH ×2 (09:15→20:12)
[2022-09-11] MEDS: Sevelamer Carbonate 800 MG TAB PO SCH ×3 (09:28→18:15)
[2022-09-11 11:23] LABS: #Basophils 0.1 thou/uL (0.0-0.2); #Eosinphils 0.2 thou/uL (0.0-0.7); #Monocytes 0.8 thou/uL (0.11-0.59); #Neutrophils 8.4 thou/uL (1.40-6.50); %Basophils 0.6 % (0.0-1.0); %Eosinophils 1.6 % (0.0-10.0); %Lymphocytes 9.8 % (21.0-51.0); %Monocytes 7.6 % (0.0-10.0); %Neutrophils 80.5 % (42.0-75.0); Hemoglobin 7.2 g/dL (14.0-18.0); Mean Corpuscular HGB CONC 33.4 g/dL (32.0-36.0); Mean Corpuscular Hemoglobin 30.3 pg (27.0-31.0); Mean Corpuscular Volume 90.9 fl (78.0-98.0); Mean Platelet Volume 6.7 fL (7.4-10.4); Platelet Count 345 10x3/uL (130-400); RBC Distribution Width 13.2 % (11.5-14.5); Red Blood Cell (RBC) Count 2.36 mill/uL (4.70-6.10); White Blood Cell (WBC) Count 10.4 10x3/uL (4.8-10.8)
[2022-09-11 11:37] LABS: Anion Gap 16 mmol/L (10-20); BUN (Urea Nitrogen) 44 mg/dL (8.4-25.7); Calc. Creatinine Clearance 15 mL/min (70-130); Calcium 9.1 mg/dL (7.8-10.44); Carbon Dioxide 27 mmol/L (22-29); Chloride 96 mmol/L (98-107); Estimated GFR 7; Glucose 205 mg/dL (70-105); Potassium 4.4 mmol/L (3.5-5.1); Sodium 135 mmol/L (136-145)
[2022-09-11] MEDS: Amitriptyline HCl 25 MG TAB PO SCH (20:12)
[2022-09-11] MEDS: Atorvastatin Calcium 40 MG TAB PO SCH (20:12)
[2022-09-11] MEDS ORDERED: Polyethylene Glycol 3350 17 GM Packet PO SCH (20:45)
[2022-09-12] MEDS: Acetaminophen 325 MG TAB PO PRN ×2 (03:13→08:44)
[2022-09-12] MEDS: hydrOXYzine 25 MG TAB PO PRN ×2 (03:14→20:06)
[2022-09-12 04:00] LABS: #Eosinphils 0.3 thou/uL (0.0-0.7); #Lymphocytes 1.1 thou/uL (1.20-3.40); #Monocytes 0.8 thou/uL (0.11-0.59); #Neutrophils 5.8 thou/uL (1.40-6.50); %Basophils 0.5 % (0.0-1.0); %Eosinophils 3.7 % (0.0-10.0); %Lymphocytes 14.1 % (21.0-51.0); %Monocytes 9.4 % (0.0-10.0); %Neutrophils 72.4 % (42.0-75.0); Hemoglobin 6.7 g/dL (14.0-18.0); Mean Corpuscular Hemoglobin 29.2 pg (27.0-31.0); Mean Platelet Volume 6.4 fL (7.4-10.4); Platelet Count 351 10x3/uL (130-400); RBC Distribution Width 13.2 % (11.5-14.5); Red Blood Cell (RBC) Count 2.29 mill/uL (4.70-6.10); White Blood Cell (WBC) Count 8.1 10x3/uL (4.8-10.8)
[2022-09-12 04:26] LABS: Anion Gap 16 mmol/L (10-20); BUN (Urea Nitrogen) 34 mg/dL (8.4-25.7); Calc. Creatinine Clearance 19 mL/min (70-130); Calcium 9.2 mg/dL (7.8-10.44); Carbon Dioxide 24 mmol/L (22-29); Chloride 96 mmol/L (98-107); Estimated GFR 9; Glucose 103 mg/dL (70-105); Magnesium 2.1 mg/dL (1.6-2.6); Potassium 4.5 mmol/L (3.5-5.1); Sodium 131 mmol/L (136-145)
[2022-09-12] MEDS: Sevelamer Carbonate 800 MG TAB PO SCH ×3 (08:44→18:13)
[2022-09-12] MEDS: QUEtiapine 25 MG TAB PO SCH ×3 (08:45→20:06)
[2022-09-12] MEDS: Carvedilol 6.25 MG TAB PO SCH ×2 (08:45→18:13)
[2022-09-12] MEDS: Senokot 8.6 MG TAB PO SCH ×2 (08:45→20:06)
[2022-09-12] MEDS: Cinacalcet HCl 30 MG TAB PO SCH (08:45)
[2022-09-12] MEDS: Docusate 100 MG CAP PO SCH ×2 (08:45→20:06)
[2022-09-12] MEDS: Gabapentin 300 MG CAP PO SCH (08:45)
[2022-09-12] MEDS: Heparin 5,000 UNITS/ML VIAL SC SCH ×3 (08:45→20:08)
[2022-09-12] MEDS ORDERED: Heparin 10,000 UNITS/ 10 ML VIAL ONE (08:51)
[2022-09-12] MEDS ORDERED: EPOETIN ALFA-EPBX (ESRD) 10,000 UNIT/ML VIAL SC SCH (09:00)
[2022-09-12] MEDS ORDERED: Polyethylene Glycol 3350 17 GM Packet PO SCH (20:00)
[2022-09-12] MEDS: Atorvastatin Calcium 40 MG TAB PO SCH (20:05)
[2022-09-12] MEDS: Amitriptyline HCl 25 MG TAB PO SCH (20:05)
[2022-09-13 11:24] LABS: #Basophils 0.1 thou/uL (0.0-0.2); #Eosinphils 0.3 thou/uL (0.0-0.7); #Lymphocytes 0.9 thou/uL (1.20-3.40); #Monocytes 0.8 thou/uL (0.11-0.59); #Neutrophils 6.2 thou/uL (1.40-6.50); %Basophils 0.8 % (0.0-1.0); %Eosinophils 3.7 % (0.0-10.0); %Monocytes 9.9 % (0.0-10.0); %Neutrophils 74.6 % (42.0-75.0); Hemoglobin 8.6 g/dL (14.0-18.0); Mean Corpuscular HGB CONC 33.6 g/dL (32.0-36.0); Mean Corpuscular Hemoglobin 29.8 pg (27.0-31.0); Mean Corpuscular Volume 88.6 fl (78.0-98.0); Mean Platelet Volume 6.2 fL (7.4-10.4); Platelet Count 305 10x3/uL (130-400); RBC Distribution Width 13.1 % (11.5-14.5); Red Blood Cell (RBC) Count 2.89 mill/uL (4.70-6.10); White Blood Cell (WBC) Count 8.3 10x3/uL (4.8-10.8)
[2022-09-13 11:40] LABS: Anion Gap 12 mmol/L (10-20); BUN (Urea Nitrogen) 19 mg/dL (8.4-25.7); Calc. Creatinine Clearance 34 mL/min (70-130); Calcium 9.7 mg/dL (7.8-10.44); Carbon Dioxide 28 mmol/L (22-29); Chloride 98 mmol/L (98-107); Estimated GFR 18; Glucose 154 mg/dL (70-105); Potassium 3.7 mmol/L (3.5-5.1); Sodium 134 mmol/L (136-145)
[2022-09-13 11:41] VITALS: TEMP 98.7
[2022-09-13] MEDS: Gabapentin 300 MG CAP PO SCH (11:56)
[2022-09-13] MEDS: QUEtiapine 25 MG TAB PO SCH (11:57)
[2022-09-13] MEDS: Docusate 100 MG CAP PO SCH (11:57)
[2022-09-13] MEDS: Sevelamer Carbonate 800 MG TAB PO SCH (11:57)
[2022-09-13] MEDS: Heparin 5,000 UNITS/ML VIAL SC SCH (11:58)
[2022-09-13] MEDS: Senokot 8.6 MG TAB PO SCH (11:58)
[2022-09-13] MEDS: Carvedilol 6.25 MG TAB PO SCH (12:00)
[2022-09-13 12:01] VITALS: BP 164/89
[2022-09-13] MEDS: Cinacalcet HCl 30 MG TAB PO SCH (12:01)
== END 2022-09-13 13:00 | disposition home or self-care (01) | DRG 640 ==
LOC: ERS 09:42 → IMCU/EMU 13:59 → 2NO 09-13 07:57
PROVIDERS: ADMIT Family Medicine; ATTEND Internal Medicine
PROC: 30233N1 Transfusion of Nonautologous Red Blood Cells into Peripheral Vein, Percutaneous Approach (ICD-10-PCS; principal; 2022-09-10)
PROC: 3E1M39Z Irrigation of Peritoneal Cavity using Dialysate, Percutaneous Approach (ICD-10-PCS; 2022-09-10)
PROC: 5A09357 Assistance with Respiratory Ventilation, Less than 24 Consecutive Hours, Continuous Positive Airway Pressure (ICD-10-PCS; 2022-09-10)
DX: E87.70 Fluid overload, unspecified (principal); J96.01 Acute respiratory failure with hypoxia; N18.6 End stage renal disease; I12.0 Hypertensive chronic kidney disease with stage 5 chronic kidney disease or end stage renal disease; E87.1 Hypo-osmolality and hyponatremia; E78.00 Pure hypercholesterolemia, unspecified; E11.22 Type 2 diabetes mellitus with diabetic chronic kidney disease; F31.9 Bipolar disorder, unspecified; E87.5 Hyperkalemia; I25.10 Atherosclerotic heart disease of native coronary artery without angina pectoris; Z20.822 Contact with and (suspected) exposure to COVID-19; K21.9 Gastro-esophageal reflux disease without esophagitis; E78.5 Hyperlipidemia, unspecified; D63.1 Anemia in chronic kidney disease; F39 Unspecified mood [affective] disorder; Z98.890 Other specified postprocedural states; Z87.891 Personal history of nicotine dependence
CPT/HCPCS: 36415; 36416; 36430; 36600; 71045; 71275; 80048; 80053; 82553; 82607; 82728; 82805; 83540; 83550; 83735; 83880; 84484; 85025; 86850; 86900; 86901; 87804; 93005; 93306; 94660; J0613; J1100; J1644; J1815; J7611; J7999; P9016; Q5105; Q9967; U0002

== ENCOUNTER 2022-09-20 01:22 | Inpatient (IN) | payer MEDICARE ==
[2022-09-20 02:40] LABS: #Eosinphils 0.3 thou/uL (0.0-0.7); #Lymphocytes 1.1 thou/uL (1.20-3.40); #Monocytes 0.9 thou/uL (0.11-0.59); #Neutrophils 7.1 thou/uL (1.40-6.50); %Basophils 0.5 % (0.0-1.0); %Eosinophils 3.1 % (0.0-10.0); %Lymphocytes 11.3 % (21.0-51.0); %Monocytes 9.2 % (0.0-10.0); Hemoglobin 7.7 g/dL (14.0-18.0); Mean Corpuscular Hemoglobin 30.8 pg (27.0-31.0); Mean Corpuscular Volume 90.6 fl (78.0-98.0); Mean Platelet Volume 6.3 fL (7.4-10.4); Platelet Count 268 10x3/uL (130-400); RBC Distribution Width 13.4 % (11.5-14.5); Red Blood Cell (RBC) Count 2.48 mill/uL (4.70-6.10); White Blood Cell (WBC) Count 9.4 10x3/uL (4.8-10.8)
[2022-09-20 03:02] LABS: ALT (SGPT) Less than 7 U/L (8-55); AST (SGOT) 12 U/L (5-34); Albumin 3.3 g/dL (3.5-5.0); Alkaline Phosphatase 126 U/L (40-110); Anion Gap 20 mmol/L (10-20); BUN (Urea Nitrogen) 69 mg/dL (8.4-25.7); Bilirubin, Total 0.4 mg/dL (0.2-1.2); CK (CPK) 70 U/L (30-200); Calc. Creatinine Clearance 0 mL/min (70-130); Calcium 9.5 mg/dL (7.8-10.44); Carbon Dioxide 24 mmol/L (22-29); Chloride 100 mmol/L (98-107); Estimated GFR 4; Globulin 3.8 g/dL (2.4-3.5); Glucose 154 mg/dL (70-105); Lipase 93 U/L (8-78); Protein, Total 7.1 g/dL (6.0-8.3); Sodium 139 mmol/L (136-145)
[2022-09-20 03:22] LABS: CKMB 2.7 ng/mL (0-6.6)
[2022-09-20] MEDS ORDERED: Ondansetron PF 4 MG/2 ML Vial IVP PRN (03:34)
[2022-09-20] MEDS ORDERED: HumaLOG 300 UNITS/3 ML VIAL SC PRN ×2 (03:45)
[2022-09-20] MEDS ORDERED: Dextrose 50% Abboject 50 ML SYRINGE SLOW IVP PRN (03:45)
[2022-09-20] MEDS ORDERED: Dextrose 5% in Water 1,000 ML IV PRN (03:45)
[2022-09-20 05:29] VITALS: BMI 31.8
[2022-09-20 06:00] LABS: Troponin I 0.047 ng/mL (< 0.028)
[2022-09-20 06:14] LABS: Hep B Surf Ag Non-Reactive S/CO (NonReactive)
[2022-09-20 06:20] LABS: HBSAB Concentration 18.23 mIU/mL; Hep B Surf AB Reactive (NonReactive)
[2022-09-20] MEDS ORDERED: Heparin 10,000 UNITS/ 10 ML VIAL ONE (08:27)
[2022-09-20] MEDS ORDERED: Sevelamer Carbonate 800 MG TAB PO PRN (08:31)
[2022-09-20] MEDS ORDERED: Nitroglycerin 0.4 MG TAB (25 Tab Bottle) SL PRN (08:31)
[2022-09-20] MEDS ORDERED: Ergocalciferol 1.25 MG(50,000 UNITS) CAP PO SCH (09:00)
[2022-09-20 09:08] LABS: Troponin I 0.047 ng/mL (< 0.028)
[2022-09-20] MEDS: QUEtiapine 25 MG TAB PO SCH ×3 (10:50→20:11)
[2022-09-20] MEDS: Cinacalcet HCl 30 MG TAB PO SCH (10:50)
[2022-09-20] MEDS: Sevelamer Carbonate 800 MG TAB PO SCH ×2 (10:50→16:24)
[2022-09-20] MEDS: Acetaminophen 325 MG TAB PO PRN ×2 (10:50→16:24)
[2022-09-20] MEDS: Docusate 100 MG CAP PO SCH ×2 (10:51→20:10)
[2022-09-20] MEDS: Carvedilol 6.25 MG TAB PO SCH ×2 (10:51→20:11)
[2022-09-20] MEDS: Gabapentin 300 MG CAP PO SCH (10:51)
[2022-09-20] MEDS: Polyethylene Glycol 3350 17 GM Packet PO SCH ×2 (10:52→20:10)
[2022-09-20] MEDS: Senokot 8.6 MG TAB PO SCH ×2 (10:52→20:11)
[2022-09-20] MEDS: hydrOXYzine 25 MG TAB PO SCH ×3 (12:55→20:11)
[2022-09-20] MEDS ORDERED: Atorvastatin Calcium 40 MG TAB PO SCH (21:00)
[2022-09-20] MEDS ORDERED: Amitriptyline HCl 25 MG TAB PO SCH (21:00)
[2022-09-21 04:45] LABS: #Eosinphils 0.4 thou/uL (0.0-0.7); #Lymphocytes 1.1 thou/uL (1.20-3.40); #Monocytes 0.9 thou/uL (0.11-0.59); #Neutrophils 6.5 thou/uL (1.40-6.50); %Basophils 0.5 % (0.0-1.0); %Eosinophils 4.2 % (0.0-10.0); %Lymphocytes 12.4 % (21.0-51.0); %Monocytes 9.7 % (0.0-10.0); %Neutrophils 73.2 % (42.0-75.0); Hemoglobin 7.9 g/dL (14.0-18.0); Mean Corpuscular HGB CONC 32.2 g/dL (32.0-36.0); Mean Corpuscular Hemoglobin 29.1 pg (27.0-31.0); Mean Corpuscular Volume 90.4 fl (78.0-98.0); Mean Platelet Volume 6.5 fL (7.4-10.4); Platelet Count 267 10x3/uL (130-400); RBC Distribution Width 13.5 % (11.5-14.5); Red Blood Cell (RBC) Count 2.73 mill/uL (4.70-6.10); White Blood Cell (WBC) Count 8.9 10x3/uL (4.8-10.8)
[2022-09-21 05:09] LABS: Anion Gap 18 mmol/L (10-20); BUN (Urea Nitrogen) 42 mg/dL (8.4-25.7); Calc. Creatinine Clearance 15 mL/min (70-130); Calcium 10.1 mg/dL (7.8-10.44); Carbon Dioxide 25 mmol/L (22-29); Chloride 97 mmol/L (98-107); Estimated GFR 7; Glucose 115 mg/dL (70-105); Potassium 5.2 mmol/L (3.5-5.1); Sodium 135 mmol/L (136-145)
[2022-09-21 07:27] VITALS: TEMP 97.8
[2022-09-21] MEDS ORDERED: Heparin 10,000 UNITS/ 10 ML VIAL ONE (08:37)
[2022-09-21] MEDS: Carvedilol 6.25 MG TAB PO SCH (10:15)
[2022-09-21] MEDS: Sevelamer Carbonate 800 MG TAB PO SCH ×2 (10:15→13:35)
[2022-09-21] MEDS: Gabapentin 300 MG CAP PO SCH (10:17)
[2022-09-21] MEDS: Docusate 100 MG CAP PO SCH (10:17)
[2022-09-21] MEDS: Cinacalcet HCl 30 MG TAB PO SCH (10:17)
[2022-09-21] MEDS: hydrOXYzine 25 MG TAB PO SCH (10:18)
[2022-09-21] MEDS: Senokot 8.6 MG TAB PO SCH (10:19)
[2022-09-21] MEDS: QUEtiapine 25 MG TAB PO SCH (10:19)
[2022-09-21] MEDS: Polyethylene Glycol 3350 17 GM Packet PO SCH (10:19)
== END 2022-09-21 15:45 | disposition home or self-care (01) | DRG 291 ==
LOC: ERS 01:22 → IMCU/EMU 03:34
PROVIDERS: ADMIT Internal Medicine; ATTEND Internal Medicine
PROC: 5A1D70Z Performance of Urinary Filtration, Intermittent, Less than 6 Hours Per Day (ICD-10-PCS; principal; 2022-09-20)
DX: I13.2 Hypertensive heart and chronic kidney disease with heart failure and with stage 5 chronic kidney disease, or end stage renal disease (principal); I50.43 Acute on chronic combined systolic (congestive) and diastolic (congestive) heart failure; N18.6 End stage renal disease; J96.01 Acute respiratory failure with hypoxia; I42.9 Cardiomyopathy, unspecified; F17.210 Nicotine dependence, cigarettes, uncomplicated; E78.00 Pure hypercholesterolemia, unspecified; F20.9 Schizophrenia, unspecified; E87.5 Hyperkalemia; E11.22 Type 2 diabetes mellitus with diabetic chronic kidney disease; D63.1 Anemia in chronic kidney disease; R77.8 Other specified abnormalities of plasma proteins; Z79.899 Other long term (current) drug therapy; Z99.2 Dependence on renal dialysis; Z79.4 Long term (current) use of insulin; Z91.158 Patient's noncompliance with renal dialysis for other reason
CPT/HCPCS: 36415; 36416; 71045; 80048; 80053; 82550; 82553; 83690; 83880; 84484; 85025; 86706; 87340; 93005; 94660; J1644

== ENCOUNTER 2022-09-24 21:56 | Observation (INO) | payer MEDICARE ==
[~2022-09-24 21:56] MED LIST changes: -Heparin 10,000 UNITS/ 10 ML VIAL ONE
[2022-09-24] MEDS ORDERED: Nitroglycerin 2% Ointment 1 INCH/1 GM Packet ONE (23:05)
[2022-09-24 23:56] LABS: #Eosinphils 0.4 thou/uL (0.0-0.7); #Lymphocytes 1.2 thou/uL (1.20-3.40); #Monocytes 0.7 thou/uL (0.11-0.59); #Neutrophils 6.6 thou/uL (1.40-6.50); %Basophils 0.5 % (0.0-1.0); %Eosinophils 4.8 % (0.0-10.0); %Lymphocytes 13.5 % (21.0-51.0); %Monocytes 7.7 % (0.0-10.0); %Neutrophils 73.4 % (42.0-75.0); Hemoglobin 7.4 g/dL (14.0-18.0); Mean Corpuscular HGB CONC 33.8 g/dL (32.0-36.0); Mean Corpuscular Hemoglobin 30.2 pg (27.0-31.0); Mean Corpuscular Volume 89.4 fl (78.0-98.0); Mean Platelet Volume 6.5 fL (7.4-10.4); Platelet Count 240 10x3/uL (130-400); RBC Distribution Width 13.5 % (11.5-14.5); Red Blood Cell (RBC) Count 2.44 mill/uL (4.70-6.10); White Blood Cell (WBC) Count 8.9 10x3/uL (4.8-10.8)
[2022-09-25 00:14] LABS: ALT (SGPT) 7 U/L (8-55); AST (SGOT) 11 U/L (5-34); Albumin 3.3 g/dL (3.5-5.0); Alkaline Phosphatase 106 U/L (40-110); Anion Gap 17 mmol/L (10-20); BUN (Urea Nitrogen) 51 mg/dL (8.4-25.7); Bilirubin, Total 0.4 mg/dL (0.2-1.2); Calc. Creatinine Clearance 0 mL/min (70-130); Calcium 9.4 mg/dL (7.8-10.44); Carbon Dioxide 25 mmol/L (22-29); Chloride 98 mmol/L (98-107); Estimated GFR 6; Globulin 3.7 g/dL (2.4-3.5); Glucose 118 mg/dL (70-105); Potassium 5.4 mmol/L (3.5-5.1); Sodium 135 mmol/L (136-145)
[2022-09-25] MEDS ORDERED: Ondansetron PF 4 MG/2 ML Vial IVP PRN (05:15)
[2022-09-25] MEDS ORDERED: Ondansetron ODT 4 MG TAB SL PRN (05:15)
[2022-09-25] MEDS ORDERED: Acetaminophen 325 MG TAB PO PRN (05:15)
[2022-09-25 07:06] LABS: Troponin I 0.031 ng/mL (< 0.028)
[2022-09-25] MEDS ORDERED: Heparin 10,000 UNITS/ 10 ML VIAL ONE (10:06)
[2022-09-25 10:23] LABS: Troponin I 0.032 ng/mL (< 0.028)
== END 2022-09-25 10:38 | disposition home or self-care (01) ==
LOC: ERS 21:56 → ERHOLD 09-25 05:06 → INTOOBSV 09-25 05:06
PROVIDERS: ADMIT Family Medicine; ATTEND Family Medicine
DX: E87.70 Fluid overload, unspecified (principal); E87.5 Hyperkalemia; I13.2 Hypertensive heart and chronic kidney disease with heart failure and with stage 5 chronic kidney disease, or end stage renal disease; E11.22 Type 2 diabetes mellitus with diabetic chronic kidney disease; N18.6 End stage renal disease; I50.20 Unspecified systolic (congestive) heart failure; D63.1 Anemia in chronic kidney disease; R94.31 Abnormal electrocardiogram [ECG] [EKG]; K21.9 Gastro-esophageal reflux disease without esophagitis; E78.00 Pure hypercholesterolemia, unspecified; J90 Pleural effusion, not elsewhere classified; Z87.891 Personal history of nicotine dependence; Z79.899 Other long term (current) drug therapy; Z99.2 Dependence on renal dialysis
CPT/HCPCS: 36415; 71045; 71275; 80053; 83880; 84484; 85025; 93005; J1644; Q9967

== ENCOUNTER 2022-10-08 07:26 | Inpatient (IN) | payer MEDICARE ==
[2022-10-08 08:31] LABS: Actual Bicarbonate (HCO3a) 27.5 mEq/L (22-28); Analyzer IN Cardio ER; Base Excess (BEa) 1.9 mEq/L (-2.0 to +3.0); CO2 Tension 47.7 mmHg (35.0-45.0); Calcium, Ionized (arterial) 1.19 mmol/L (1.12-1.30); Carboxyhemoglobin (COHb) 0.9 gm% (0.0-3.0); Hematocrit-ABG 26 % (42.0-52.0); Hemoglobin (Hb) 8.8 g/dL (14.0-18.0); pH, Arterial 7.378 (7.35-7.45)
[2022-10-08 08:38] LABS: O2 Tension (PaO2), arterial 28.4 mmHg (80.0-100.0)
[2022-10-08 08:39] LABS: Potassium - ABG Lab 6.87 mmol/L (3.70-5.30); Puncture Site RRA
[2022-10-08 08:40] LABS: ALV-art Gradient 197.175 mmHg (0-20)
[2022-10-08] MEDS ORDERED: Heparin 10,000 UNITS/ 10 ML VIAL ONE (08:40)
[2022-10-08 10:37] LABS: #Basophils 0.1 thou/uL (0.0-0.2); #Eosinphils 0.5 thou/uL (0.0-0.7); #Lymphocytes 1.3 thou/uL (1.20-3.40); #Monocytes 0.8 thou/uL (0.11-0.59); #Neutrophils 5.7 thou/uL (1.40-6.50); %Basophils 0.8 % (0.0-1.0); %Eosinophils 5.6 % (0.0-10.0); %Lymphocytes 15.5 % (21.0-51.0); %Neutrophils 69.2 % (42.0-75.0); Hemoglobin 7.6 g/dL (14.0-18.0); Mean Corpuscular HGB CONC 33.5 g/dL (32.0-36.0); Mean Corpuscular Hemoglobin 30.1 pg (27.0-31.0); Mean Corpuscular Volume 89.8 fl (78.0-98.0); Mean Platelet Volume 6.8 fL (7.4-10.4); Platelet Count 306 10x3/uL (130-400); RBC Distribution Width 15.1 % (11.5-14.5); Red Blood Cell (RBC) Count 2.53 mill/uL (4.70-6.10); White Blood Cell (WBC) Count 8.3 10x3/uL (4.8-10.8)
[2022-10-08 10:39] LABS: ALT (SGPT) 12 U/L (8-55); AST (SGOT) 16 U/L (5-34); Albumin 3.7 g/dL (3.5-5.0); Alkaline Phosphatase 111 U/L (40-110); Anion Gap 22 mmol/L (10-20); BUN (Urea Nitrogen) 61 mg/dL (8.4-25.7); Bilirubin, Total 0.6 mg/dL (0.2-1.2); Calc. Creatinine Clearance 0 mL/min (70-130); Calcium 10.2 mg/dL (7.8-10.44); Carbon Dioxide 25 mmol/L (22-29); Chloride 96 mmol/L (98-107); Estimated GFR 6; Globulin 3.9 g/dL (2.4-3.5); Glucose 147 mg/dL (70-105); Protein, Total 7.6 g/dL (6.0-8.3); Sodium 136 mmol/L (136-145)
[2022-10-08 10:46] LABS: Potassium 6.6 mmol/L (3.5-5.1)
[2022-10-08] MEDS ORDERED: Sodium Bicarb 50 MEQ/50 ML VIAL ONE (11:03)
[2022-10-08] MEDS ORDERED: Insulin Regular 300 UNITS/3 ML VIAL ONE (11:03)
[2022-10-08] MEDS ORDERED: Calcium Gluc 4.6 MEQ/10 ML (100 MG/ML) ONE (11:03)
[2022-10-08] MEDS ORDERED: Dextrose 50% Abboject 50 ML SYRINGE ONE (11:04)
[2022-10-08 12:40] LABS: Actual Bicarbonate (HCO3v) 30.2 mEq/L (22-28); Analyzer IN Cardio ER; Base Excess 3.8 mEq/L (-2.0 to +3.0); Chloride (VBG) 96 mmol/L (98-106); Hematocrit-VBG 24 % (42.0-52.0); Hemoglobin (Hb) 8.3 g/dL (13.1-17.2); Sodium 132.1 mmol/L (133-146); pH (venous) 7.344 (7.32-7.43)
[2022-10-08] MEDS ORDERED: Ipratropium/Albuterol 3 ML NEB NEB PRN (13:27)
[2022-10-08] MEDS ORDERED: hydrALAZINE 20 MG/ML VIAL SLOW IVP PRN (13:28)
[2022-10-08] MEDS ORDERED: Dextrose 5% in Water 1,000 ML IV PRN (13:29)
[2022-10-08] MEDS ORDERED: Insulin Regular 300 UNITS/3 ML VIAL SC PRN ×3 (13:29→16:15)
[2022-10-08] MEDS ORDERED: Dextrose 50% Abboject 50 ML SYRINGE SLOW IVP PRN (13:29)
[2022-10-08] MEDS ORDERED: Calcium Carbonate 500 MG ChewTAB PO PRN (13:30)
[2022-10-08] MEDS ORDERED: Senokot S 8.6-50 MG TAB PO PRN (13:30)
[2022-10-08] MEDS ORDERED: Acetaminophen 325 MG TAB PO PRN (13:30)
[2022-10-08 14:05] VITALS: TEMP 97.9
[2022-10-08 15:24] LABS: Troponin I 0.029 ng/mL (< 0.028)
[2022-10-08 17:00] VITALS: BP 159/95
[2022-10-08] MEDS ORDERED: Carvedilol 6.25 MG TAB PO SCH (17:00)
[2022-10-08] MEDS ORDERED: Heparin 5,000 UNITS/ML VIAL SC SCH (21:00)
== END 2022-10-08 18:25 | disposition home or self-care (01) | DRG 640 ==
LOC: ERS 07:26 → ERHOLD 12:36 → CCU 13:49
PROVIDERS: ADMIT Internal Medicine; ATTEND Internal Medicine
PROC: 4A133R1 Monitoring of Arterial Saturation, Peripheral, Percutaneous Approach (ICD-10-PCS; principal; 2022-10-08)
PROC: 5A09357 Assistance with Respiratory Ventilation, Less than 24 Consecutive Hours, Continuous Positive Airway Pressure (ICD-10-PCS; 2022-10-08)
PROC: 5A1D70Z Performance of Urinary Filtration, Intermittent, Less than 6 Hours Per Day (ICD-10-PCS; 2022-10-08)
DX: E87.5 Hyperkalemia (principal); J96.01 Acute respiratory failure with hypoxia; J96.02 Acute respiratory failure with hypercapnia; N18.6 End stage renal disease; I13.2 Hypertensive heart and chronic kidney disease with heart failure and with stage 5 chronic kidney disease, or end stage renal disease; I50.42 Chronic combined systolic (congestive) and diastolic (congestive) heart failure; E87.70 Fluid overload, unspecified; Z99.2 Dependence on renal dialysis; I16.0 Hypertensive urgency; E11.22 Type 2 diabetes mellitus with diabetic chronic kidney disease; F31.9 Bipolar disorder, unspecified; F17.210 Nicotine dependence, cigarettes, uncomplicated; D63.1 Anemia in chronic kidney disease; I25.10 Atherosclerotic heart disease of native coronary artery without angina pectoris; G47.33 Obstructive sleep apnea (adult) (pediatric); Z79.899 Other long term (current) drug therapy; Z79.4 Long term (current) use of insulin; E78.00 Pure hypercholesterolemia, unspecified
CPT/HCPCS: 36415; 36416; 36600; 71045; 80053; 82805; 83605; 83880; 84484; 85025; 90935; 93005; 94660; 96374; 96375; G0257; J0612; J1644; J1815; J7999

== ENCOUNTER 2022-10-16 05:44 | Inpatient (IN) | payer MEDICARE ==
[2022-10-16 06:17] LABS: #Eosinphils 0.3 thou/uL (0.0-0.7); #Monocytes 0.6 thou/uL (0.11-0.59); %Basophils 0.6 % (0.0-1.0); %Eosinophils 4.3 % (0.0-10.0); %Lymphocytes 14.7 % (21.0-51.0); %Monocytes 8.2 % (0.0-10.0); %Neutrophils 71.8 % (42.0-75.0); Hemoglobin 7.2 g/dL (14.0-18.0); Mean Corpuscular HGB CONC 30.8 g/dL (32.0-36.0); Mean Corpuscular Volume 91.1 fl (78.0-98.0); Mean Platelet Volume 8.8 fL (7.4-10.4); Platelet Count 208 10x3/uL (130-400); Red Blood Cell (RBC) Count 2.57 mill/uL (4.70-6.10); White Blood Cell (WBC) Count 6.9 10x3/uL (4.8-10.8)
[2022-10-16 06:42] LABS: ALT (SGPT) 12 U/L (8-55); AST (SGOT) 16 U/L (5-34); Albumin 3.8 g/dL (3.5-5.0); Alkaline Phosphatase 103 U/L (40-110); Anion Gap 24 mmol/L (10-20); BUN (Urea Nitrogen) 93 mg/dL (8.4-25.7); Bilirubin, Total 0.5 mg/dL (0.2-1.2); Calc. Creatinine Clearance 0 mL/min (70-130); Calcium 9.5 mg/dL (7.8-10.44); Carbon Dioxide 22 mmol/L (22-29); Chloride 96 mmol/L (98-107); Estimated GFR 4; Globulin 3.7 g/dL (2.4-3.5); Glucose 124 mg/dL (70-105); Protein, Total 7.5 g/dL (6.0-8.3); Sodium 135 mmol/L (136-145)
[2022-10-16 06:44] LABS: Potassium 6.6 mmol/L (3.5-5.1)
[2022-10-16] MEDS ORDERED: CALCIUM GLUC 1 GM/NS 50 ML BAG ONE (06:52)
[2022-10-16] MEDS ORDERED: hydrOXYzine 25 MG TAB PO PRN (07:24)
[2022-10-16] MEDS ORDERED: Ondansetron ODT 4 MG TAB PO PRN (07:24)
[2022-10-16] MEDS ORDERED: Ondansetron PF 4 MG/2 ML Vial IVP PRN (07:24)
[2022-10-16] MEDS ORDERED: Acetaminophen 325 MG TAB PO PRN (07:24)
[2022-10-16] MEDS ORDERED: Senokot S 8.6-50 MG TAB PO PRN (07:24)
[2022-10-16] MEDS ORDERED: Calcium Carbonate 500 MG ChewTAB PO PRN (07:24)
[2022-10-16] MEDS ORDERED: Ipratropium/Albuterol 3 ML NEB NEB PRN (07:29)
[2022-10-16] MEDS ORDERED: HumaLOG 300 UNITS/3 ML VIAL SC PRN (07:30)
[2022-10-16] MEDS ORDERED: Dextrose 5% in Water 1,000 ML IV PRN (07:30)
[2022-10-16] MEDS ORDERED: Dextrose 50% Abboject 50 ML SYRINGE SLOW IVP PRN (07:30)
[2022-10-16] MEDS ORDERED: hydrALAZINE 20 MG/ML VIAL SLOW IVP PRN (07:31)
[2022-10-16] MEDS ORDERED: Sevelamer Carbonate 800 MG TAB PO SCH ×2 (08:00→12:00)
[2022-10-16 08:36] VITALS: BMI 31.5
[2022-10-16] MEDS ORDERED: Heparin 10,000 UNITS/ 10 ML VIAL ONE (08:52)
[2022-10-16] MEDS ORDERED: Cinacalcet HCl 30 MG TAB PO SCH (09:00)
[2022-10-16] MEDS ORDERED: QUEtiapine 25 MG TAB PO SCH (09:00)
[2022-10-16] MEDS ORDERED: Docusate 100 MG CAP PO SCH (09:00)
[2022-10-16] MEDS ORDERED: Ergocalciferol 1.25 MG(50,000 UNITS) CAP PO SCH (09:00)
[2022-10-16] MEDS ORDERED: Carvedilol 6.25 MG TAB PO SCH (09:00)
[2022-10-16] MEDS ORDERED: Gabapentin 300 MG CAP PO SCH (09:00)
[2022-10-16 11:36] VITALS: TEMP 97.2
[2022-10-16 15:25] LABS: Albumin 3.9 g/dL (3.5-5.0); Anion Gap 19 mmol/L (10-20); BUN (Urea Nitrogen) 40 mg/dL (8.4-25.7); BUN/Creatinine Ratio 5.54; Calc. Creatinine Clearance 18 mL/min (70-130); Carbon Dioxide 24 mmol/L (22-29); Chloride 97 mmol/L (98-107); Estimated GFR 8; Glucose 172 mg/dL (70-105); Phosphorus 5.4 mg/dL (2.3-4.7); Potassium 4.1 mmol/L (3.5-5.1); Sodium 136 mmol/L (136-145)
[2022-10-16] MEDS ORDERED: Atorvastatin Calcium 40 MG TAB PO SCH (21:00)
[2022-10-16] MEDS ORDERED: Amitriptyline HCl 25 MG TAB PO SCH (21:00)
[2022-10-17] MEDS ORDERED: Heparin 5,000 UNITS/ML VIAL SC SCH (09:00)
== END 2022-10-16 14:25 | disposition left against medical advice (07) | DRG 640 ==
LOC: SUATTDRO 05:44 → ERS 05:44 → IMCU/EMU 08:04
PROVIDERS: ADMIT Internal Medicine; ATTEND Internal Medicine
PROC: 5A1D70Z Performance of Urinary Filtration, Intermittent, Less than 6 Hours Per Day (ICD-10-PCS; principal; 2022-10-16)
DX: E87.70 Fluid overload, unspecified (principal); J96.01 Acute respiratory failure with hypoxia; N18.6 End stage renal disease; I50.22 Chronic systolic (congestive) heart failure; I13.2 Hypertensive heart and chronic kidney disease with heart failure and with stage 5 chronic kidney disease, or end stage renal disease; E11.22 Type 2 diabetes mellitus with diabetic chronic kidney disease; Z99.2 Dependence on renal dialysis; D63.1 Anemia in chronic kidney disease; E87.5 Hyperkalemia; Z79.899 Other long term (current) drug therapy; Z79.4 Long term (current) use of insulin; G89.29 Other chronic pain; Z91.158 Patient's noncompliance with renal dialysis for other reason; E78.00 Pure hypercholesterolemia, unspecified; Z87.891 Personal history of nicotine dependence; F20.9 Schizophrenia, unspecified
CPT/HCPCS: 36415; 71045; 80053; 83880; 84484; 85025; 90935; 93005; 93010; 94660; G0257; J0613; J1644